=== PATIENT | male | born 1980 | race Caucasian/White ===

== ENCOUNTER 2020-01-23 19:05 | Emergency (ER) | payer SELFPAY ==
--- NOTE | 2020-01-23 19:08 | ED.GENADUL_ITS ---
Discharge Plan Disposition Patient Disposition: HOME Condition: Good Discharge Details Chief Complaint: Laceration Clinical Impression: Laceration of thumb Primary Care Provider: Charan Sandoval ED Provider: Larry Alvarez Home Meds and New Rx's Prescriptions: New cephalexin [Keflex] 500 mg capsule 500 mg PO QID 5 Days Qty: 20 RF: 0 No Action fluoxetine 20 mg tablet 20 mg PO DAILY Qty: 90 RF: 3 Discharge Instructions Instructions: Laceration (ED) Additional Instructions: Unfortunately the tibial stem is now missing. We will not be able to bring this back together with surgery at this time. This will heal gradually with time. Please follow-up with Dr. Friend at his office next week. Please call his office at the number provided. Please take antibiotic as directed. I would recommend taking 1000 mg of Tylenol every 6 hours and 600 mg of ibuprofen every 6 hours to help with the pain. Keep the bandage dry until you are seen and reassessed. Do not soak it or get it wet at all. If you notice any redness, drainage or discharge please return immediately. If you notice any worsening of your symptoms, or any new symptoms such as vomiting, diarrhea, fever, chills, shortness of breath, chest pain, numbness, weakness, or fainting , please return immediately to the emergency department for reevaluation. Please follow up with your primary care provider as soon as possible for reassessment and reevaluation. As always, it was a pleasure participating in your medical care today. Referrals: Juan Friend MD [ [facility] STAFF PHYSICIAN] - Medical Decision Making 39-year-old male who is left-hand dominant who presents with partial amputation of the distal tip of his right thumb medial aspect. He chopped off on a table saw. Exam demonstrates no evidence of bony protrusion, or exposed bone. X-ray shows no evidence of bony fracture. Unfortunately secondary to the nature of the partial lateral amputation he is not a candidate to have the skin brought back together. It is essentially shaved off and a 10 degree angle on the medial aspect of the distal tip. I did contact orthopedic surgery and spoke with Dr. Friend. He also does not feel that surgical intervention would be beneficial. He recommends close follow-up in the next week. Tetanus has been updated. We will start him on Keflex. Pain is well controlled. After the area was bandaged with nonadhesive gauze tourniquet was removed and no continued sign ificant bleeding was noted. Patient feels well. Patient will be discharged home. Discussed red flags which to return. I have extensively reviewed the treatment plan and discharge instructions with the patient. I have addressed all patient concerns at this time. The patient was made aware of what symptoms to monitor for that would warrant a return to the emergency department. Discussed the plan with the patient, they demonstrate verbal understanding and agreement with our assessment and plan at this time. HPI General Date/Time Provider Initiated Documentation: 01/23/20 19:06 . HPI Narrative: 39-year-old male who is left-hand dominant his tetanus was updated in 2005 presents today for laceration to his right thumb. The patient was working with a table saw when a piece of wood slipped, his thumb went and hit the table saw. Immediately came to the ER for further evaluation. He denies any associated numbness tingling weakness aside for where the flashes missing at the tip of his thumb. No other complaints at this time. No other modifying factors. Related Data Home Medications Medication Instructions Recorded Confirmed fluoxetine 20 mg tablet 20 mg PO DAILY #90 tab 05/01/19 cephalexin [Keflex] 500 mg PO QID 5 Days #20 cap 01/23/20 Previous Rx's Medication Instructions Recorded fluoxetine 20 mg tablet 20 mg PO DAILY #90 tab 05/01/19 cephalexin [Keflex] 500 mg PO QID 5 Days #20 cap 01/23/20 Allergies Allergy/AdvReac Type Severity Reaction Status Date / Time No Known Allergies Allergy Unverified 01/23/20 19:15 Review of Systems All systems reviewed & are unremarkable except as noted in HPI and below [facility] Surgical History (Updated 07/04/17 @ 10:37 by Cora Weber) PAROTIDECTOMY 2016 Social History Smoking/Tobacco Use Status: Never Substance use type: does not use Do you feel safe at home: Yes Do you feel safe in your relationship?: Yes Exam Narrative Exam Narrative: 1.Const: Well-nourished, Well-developed, appearing stated age 2.Eyes: PERRL, no conjunctival injection, and symmetrical lids. 3.ENT: Atraumatic external nose and ears. Moist MM. Neck: Symmetric, trachea midline, No thyromegaly. 4.CVS: +S1/S2, No murmurs or gallops. Peripheral pulses 2+ and equal in all extremities. Brisk capillary refill in all extremities. 5.RESP: Unlabored respiratory effort. Clear to auscultation bilaterally. No wheezes rales or rhonchi 6.GI: Soft, Nontender/Nondistended, No hepatosplenomegaly. No guarding or rebound. 7.MSK: Patient's right thumb demonstrates partial amputation of the medial aspect of the distal tip removing a small portion of the nail. No evidence of bony exposure. Mild active oozing. No arterial bleeding. Patient is able to flex and extend the thumb well otherwise. 8.Skin: Warm, Dry. No rashes or lesions. 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 Sensation grossly intact, no focal neurologic deficits. 10.Psych: (AAO) x3. Appropriate mood and affect
[2020-01-23 19:11] VITALS: BP 164/96; PULSE 94; RESP 17; TEMP 37; O2SAT 95
--- NOTE | 2020-01-23 19:46 | DI.RAD_ITS ---
EXAM: XR THUMB RT CLINICAL HISTORY: chop saw to tip of finger. TECHNIQUE: 2D digital imaging was performed. COMPARISON: RIGHT HAND COMPLETE from 07/10/2012 FINDINGS: BONES: No acute fracture is present. No bony destructive lesion is seen. JOINTS: No dislocation present. SOFT TISSUE: There is a soft tissue amputation at the tip of the finger. There is a 1 mm curvilinear density in the soft tissues at the tip of the finger which may represent a foreign body. IMPRESSION: 1. No acute fracture or dislocation. 2. Amputation of the soft tissues at the tip of the finger. 3. 1 mm density in the soft tissues at the tip of the finger which may represent a foreign body. DATA REPOSITORY: RADIATION DOSE DELIVERED:
--- NOTE | 2020-01-23 19:53 | DI.VRAD_ITS ---
PROCEDURE INFORMATION: Exam: XR Right Finger(s) Exam date and time: 01/23/2020 7:42 PM Age: 39 years old Clinical indication: Injury or trauma; Injury history: Thumb vs chop saw; Initial encounter; Laceration; Finger; Right; Injury date: 01/23/20 TECHNIQUE: Imaging protocol: XR Right fingers. Views: Minimum 2 views. COMPARISON: No relevant prior studies available. FINDINGS: Bones/joints: There is no evidence of fracture of the distal phalanx. Soft tissues: Soft tissue avulsion at the tip of the right thumb. There is a 1 mm hyperdense focus of debris at the tip of the finger which may represent foreign material superficially located at the soft tissue laceration/avulsion. IMPRESSION: 1. Soft tissue avulsion at the tip of the right thumb. 2. No fracture or dislocation. 3. Punctate foreign debris seen superficially in the soft tissue injury bed. Dictated and Authenticated by: Bhaskar Harris MD. Ordering:MIGDALIA Juarez MD
[2020-01-23 20:20] VITALS: BP 159/86; PULSE 94; RESP 17
== END 2020-01-23 20:20 | disposition home or self-care (01) ==
PROVIDERS: Emergency Provider Student in an Organized Health Care Education/Training Program; PCP Family Medicine
DX: S68.521A Partial traumatic transphalangeal amputation of right thumb, initial encounter (principal); W31.2XXA Contact with powered woodworking and forming machines, initial encounter
CPT/HCPCS: 90471; 99284; 73140

== ENCOUNTER 2020-09-27 11:25 | Outpatient (CLI) | payer BC, SELFPAY ==
[2020-09-28 16:50] LABS: COVID-19 RT-PCR UVMMC Result Negative (Negative)
== END 2020-09-27 11:45 ==
PROVIDERS: PCP Family Medicine; Visit Provider Family Medicine
DX: Z20.828 Contact with and (suspected) exposure to other viral communicable diseases (principal)
CPT/HCPCS: U0003

== ENCOUNTER 2021-06-14 19:41 | Emergency (ER) | payer BC, SELFPAY ==
[2021-06-14 19:47] VITALS: BP 179/95; PULSE 79; RESP 18; TEMP 36.7; O2SAT 97
--- NOTE | 2021-06-14 20:02 | ED.GENADUL_ITS ---
Discharge Plan Disposition Patient Disposition: HOME Condition: Good Discharge Details Clinical Impression: Cellulitis Primary Care Provider: Charan Sandoval ED Provider: Larry Alvarez Home Meds and New Rx's Prescriptions: New clindamycin HCl 150 mg capsule 450 mg PO TID 7 Days Qty: 63 RF: 0 Continued valacyclovir [Valtrex] 1 gram tablet 1,000 mg PO TID Qty: 21 RF: 0 amoxicillin 875 mg tablet 875 mg PO BID Qty: 14 RF: 0 cephalexin 500 mg capsule 500 mg PO QID Qty: 28 RF: 0 fluoxetine 20 mg tablet 20 mg PO DAILY Qty: 90 RF: 3 Discharge Instructions Instructions: Cellulitis (ED) Additional Instructions: At this time you still demonstrate evidence of mild to moderate cellulitis. As we discussed together please continue taking the Keflex for another 24 hours. If you notice continued worsening of the cellulitis or a lack of any improvement please transition to the clindamycin instead. Stop taking your other antibiotics at that time then. Please continue to elevate your foot. If you notice any swelling or tenderness in your calf, any viselike sensation in your ankle, or leg, please return immediately for reassessment. If you are taking the clindamycin please make sure to take it with a yogurt with live culture like activity to prevent any diarrhea. If you notice any worsening of your symptoms, or any new symptoms such as vomiting, diarrhea, fever, chills, shortness of breath, chest pain, numbness, weakness, or fainting , please return immediately to the emergency department for reevaluation. Please follow up with your primary care provider as soon as possible for reassessment and reevaluation. As always, it was a pleasure participating in your medical care today. Referrals: Charan Sandoval. [Primary Care Provider] - Medical Decision Making 40-year-old male presents today for evaluation of cellulitis. Patient was stung 10 days ago by a yellow jacket for the left lower ankle, this was asymptomatic until 36 hours ago when he developed mild redness and swelling at the area. He went to the urgent care and was started on Keflex which she has taken for the last 24 hours. Since then he has noted continued redness and swelling that is now spreading down the ankle. He denies fever or chills. No significant pain otherwise. He does admit to a very mild amount of pressure on that area but denies verbally any viselike sensation, or significant pressure. He denies any calf tenderness or knee pain. No other complaints at this time. No other modifying factors. He has been applying an [id number] topical bee sting remedy solution. Physical exam demonstrates redness spreading distally down the medial aspect of the left lower extremity, somewhat doubling the size of the initial cellulitic lesion. This area was again marked. Patient demonstrate no viselike sensation or significant pressure in the left lower extremity to suggest compartment syndrome, demonstrates a good distal vascular exam, normal sensation distally. No calf tenderness to suggest a blood clot or DVT. Symptoms at this time are concerning for worsening cellulitis. The patient has only taken 24 hours of antibiotics, so I doubt the full effect of the antibiotic therapy will be grossly evident at this stage. Recommend an additional 24 hours of continued Keflex, we will give him a prescription for clindamycin cream to take if his symptoms continue to worsen. I also discussed concerning red flags that would represent compartment syndrome, or DVT, although there is no evidence of this now, the patient is now well aware of what symptoms to look for. I have extensively reviewed the treatment plan and discharge instructions with the patient. I have addressed all patient concerns at this time. The patient was made aware of what symptoms to monitor for that would warrant a return to the emergency department. Discussed the plan with the patient, they demonstrate verbal understanding and agreement with our assessment and plan at this time. The documentation in this chart was dictated using [employer] dictation software. Please excuse any dictation errors. HPI General Date/Time Provider Initiated Documentation: 06/14/21 19:50 . HPI Narrative: 40-year-old male presents today for evaluation of cellulitis. Patient was stung 10 days ago by a yellow jacket for the left lower ankle, this was asymptomatic until 36 hours ago when he developed mild redness and swelling at the area. He went to the urgent care and was started on Keflex which she has taken for the last 24 hours. Since then he has noted continued redness and swelling that is now spreading down the ankle. He denies fever or chills. No significant pain otherwise. He does admit to a very mild amount of pressure on that area but denies verbally any viselike sensation, or significant pressure. He denies any calf tenderness or knee pain. No other complaints at this time. No other modifying factors. He has been applying an [id number] topical bee sting remedy solution. Related Data Home Medications Medication Instructions Recorded Confirmed fluoxetine 20 mg tablet 20 mg PO DAILY #90 tab 05/01/19 02/28/21 valacyclovir 1 gram tablet 1,000 mg PO TID #21 tab 08/11/20 02/28/21 amoxicillin 875 mg tablet 875 mg PO BID #14 tab 02/25/21 02/25/21 cephalexin 500 mg capsule 500 mg PO QID #28 cap 06/13/21 06/13/21 clindamycin HCl 450 mg PO TID 7 Days #63 cap 06/14/21 Previous Rx's Medication Instructions Recorded fluoxetine 20 mg tablet 20 mg PO DAILY #90 tab 05/01/19 valacyclovir 1 gram tablet 1,000 mg PO TID #21 tab 08/11/20 amoxicillin 875 mg tablet 875 mg PO BID #14 tab 02/25/21 cephalexin 500 mg capsule 500 mg PO QID #28 cap 06/13/21 clindamycin HCl 450 mg PO TID 7 Days #63 cap 06/14/21 Allergies Allergy/AdvReac Type Severity Reaction Status Date / Time valacyclovir [From Valtrex] Allergy Severe headache - Verified 06/13/21 17:56 nauseau General Stated Complaint: Cellulitis HARRY: 4 Review of Systems All systems reviewed & are unremarkable except as noted in HPI and below PFSH Medical History Left eye pain Zoster Surgical History PAROTIDECTOMY 2016 Social History Smoking/Tobacco Use Status: Never Smoking risk assessment performed?: Yes Alcohol Intake: never Substance use type: does not use Do you feel safe at home: Yes Do you feel safe in your relationship?: Yes Exam Narrative Exam Narrative: 1.Const: Well-nourished, Well-developed, appearing stated age 2.Eyes: PERRL, no conjunctival injection, and symmetrical lids. 3.ENT: Atraumatic external nose and ears. Moist MM. Neck: Symmetric, trachea midline, No thyromegaly. 4.CVS: +S1/S2, No murmurs or gallops. Peripheral pulses 2+ and equal in all extremities. Brisk capillary refill in all extremities. 5.RESP: Unlabored respiratory effort. Clear to auscultation bilaterally. No wheezes rales or rhonchi 6.GI: Soft, Nontender/Nondistended, No hepatosplenomegaly. No guarding or rebound. 7.MSK: Normocephalic/Atraumatic, Extremities w/o deformity or ttp No cyanosis or clubbing, Normal movement of all extremities. Patient's left lower extremity demonstrates mild area of redness at the site of the medial left lower calf just above the ankle, the original cellulitic area was marked with marker, and there is evidence of spread of the cellulitis down the medial aspect of the ankle towards the medial malleolus. No bony tenderness, no tenderness with movement. Dorsalis pedis and posterior tibial pulse +2 bilaterally, good capillary refill. No calf tenderness, no calf swelling, no posterior knee tenderness. No crepitus. 8.Skin: Warm, Dry. No rashes or lesions. 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 Sensation grossly intact, no focal neurologic deficits. 10.Psych: (AAO) x3. Appropriate mood and affect Course Vital Signs Vital signs: Vital Signs Temperature 36.7 C 06/14/21 19:47 Pulse 79 06/14/21 19:47 Respiratory Rate 18 06/14/21 19:47 Blood Pressure 179/95 H 06/14/21 19:47 Pulse Oximetry 97 06/14/21 19:47 Temperature 36.7 C 06/14/21 19:47 Temperature Source Temporal Artery Scan 06/14/21 19:47 Pulse 79 06/14/21 19:47 Respiratory Rate 18 06/14/21 19:47 Respiratory Effort Non-Labored 06/14/21 19:49 Blood Pressure 179/95 H 06/14/21 19:47 Blood Pressure Position Sitting 06/14/21 19:47 Pulse Oximetry 97 06/14/21 19:47 Oxygen Delivery Method Room Air 06/14/21 19:47 Oxygen Flow Rate 0 06/14/21 19:47 Pain Level 0 06/14/21 19:47
== END 2021-06-14 20:09 | disposition home or self-care (01) ==
LOC: ER 20:11
PROVIDERS: Emergency Provider Student in an Organized Health Care Education/Training Program; PCP Family Medicine
DX: L03.116 Cellulitis of left lower limb (principal)
CPT/HCPCS: 99283

== ENCOUNTER 2022-08-23 13:44 | Outpatient (REF) | payer BC, SELFPAY ==
[2022-08-23 15:56] LABS: Sperm(Post-Vasectomy) Present
== END 2022-08-23 13:45 | disposition home or self-care (01) ==
LOC: LBN 13:44
PROVIDERS: PCP Family Medicine; Visit Provider Family Medicine
DX: Z30.8 Encounter for other contraceptive management (principal); Z98.52 Vasectomy status
CPT/HCPCS: 89321

== ENCOUNTER 2023-09-13 11:17 | Day surgery (SDC) | payer BC, SELFPAY ==
[2023-09-12 13:15] VITALS: BP 134/80; PULSE 81; RESP 16; TEMP 36.3; O2SAT 94
--- NOTE | 2023-09-13 10:53 | W.PM.HP.N ---
Date of service: 09/13/23 Time of Service: 12:12 Assessment and Plan Assessment and plan (1) Encounter for vasectomy: Status: Acute Assessment and plan: For vasectomy History of Present Illness History of Present Illness Chief Complaint: Vasectomy Narrative: This is a 42-year-old gentleman who had a vasectomy in the past. He then had a vasectomy reversal. Those procedures were done over 5 years ago. He comes in now for repeat vasectomy. He and his partner are not interested in additional pregnancies. Review of Systems Narrative: No fevers or chills No vision change or dysphasia Hypothyroidism. No diabetes Sleep apnea and patient describes being told he is a difficult intubation (during parotidectomy). 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: Yes Meds Allergies and Home Medications Allergies Allergy/AdvReac Type Severity Reaction Status Date / Time valacyclovir [From Valtrex] AdvReac Severe headache - Verified 09/13/23 11:35 nausea Home Medications Medication Instructions Recorded Confirmed Type Unknown [No Known Home Meds] 07/30/23 09/13/23 History Exam Const General: cooperative Neck Neck: supple Resp Effort & Inspection: normal respiratory effort Auscultation: clear to auscultation bilaterally Cardio Rate: regular rate Rhythm: regular rhythm GI Palpation: soft and no masses Other: both vas deferens palpable but cord thickened bilaterally Neuro General: patient alert, patient awake and patient oriented x3 Time Spent Time spent with Patient: <40 minutes Time was spent: other
[2023-09-13 11:36] VITALS: BP 156/86; PULSE 90; RESP 17; TEMP 36.1; O2SAT 95
--- NOTE | 2023-09-13 12:10 | W.ANESPRE ---
General Info Date of Service Date Performed: 09/13/23 Height: 5 ft 11 in Weight: 136.1 kg Body Mass Index (BMI): 41.8 Surgical Procedure: Operation Date: 09/13/23 13:10 Proposed Procedure Side Surgeon p Vasectomy Brett Hamilton MD Actual Procedure Side Surgeon p Vasectomy Not Applicable Brett Hamilton MD Pre-Op Diagnosis Post-Op Diagnosis DESIRE FOR VASECTOMY. DESIRE FOR VASECTOMY. Meds Allergies and Home Medications Allergies Allergy/AdvReac Type Severity Reaction Status Date / Time valacyclovir [From Valtrex] AdvReac Severe headache - Verified 09/13/23 11:35 nausea Home Medication Medication Instructions Recorded Unknown [No Known Home Meds] 07/30/23 Current Visit Medications: Current Medications Generic Name Dose Route Start Last Admin Trade Name Freq PRN Reason Stop Dose Admin Ringer's Solution 1,000 mls @ 80 mls/hr 09/13/23 06:00 IV 10/12/23 23:59 INFUSION ANALIA IV Miscellaneous Supplies 1 each 09/13/23 06:00 Iv Access IV 10/12/23 23:59 DIRECTED ANALIA Sodium Chloride 0 ml 09/13/23 06:00 Normal Saline Flush 10 Ml Syr IV 10/12/23 23:59 PRN PRN Sodium Chloride 0 ml 09/13/23 06:00 Normal Saline 10 Ml Vial IJ 10/12/23 23:59 DIRECTED PRN Sterile Water 0 ml 09/13/23 06:00 Water,Injection,Sterile 10 Ml Vial IJ 10/12/23 23:59 DIRECTED PRN PFSH Active Problems Active Problems: Problem Status Onset Code Encounter for vasectomy Z30.2 H/O vasectomy Z98.52 Cellulitis L03.90 Left eye pain H57.12 Zoster B02.9 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 01/23/20 S68.521A Muscle strain of right gluteal region S76.011A Mood disorder F39 Hypothyroidism 08/01/13 E03.9 Sleep apnea 01/21/15 G47.30 SOREN (obstructive sleep apnea) G47.33 Medical History Medical History Comments:: Pt reports having breathing issues intraop; SOREN CPAP compliant at home Surgical History Surgical History History of hip surgery right, 2x; labral tear and lengthening it IT band PAROTIDECTOMY 2016 Tobacco Smoking/Tobacco Use Status: Never Alcohol Alcohol Intake: never Substance Use Substance use: Never Substance use type: does not use Vital Signs and Lab Results Vital Signs Most Recent Vital Signs in EMR: Most Recent Vital Signs Temp Pulse Resp BP Pulse Ox 36.1 C L 90 17 156/86 H 95 09/13/23 11:36 09/13/23 11:36 09/13/23 11:36 09/13/23 11:36 09/13/23 11:36 Lab Results Blood Type / Crossmatch: No Data to Display Complete Blood Count: No Data to Display Complete Metabolic Panel: No Data to Display Liver Function Panel: No Data to Display Coagulation Panel: No Data to Display Cardiac Panel: No Data to Display Arterial Blood Gas: No Data to Display Venous Blood Gas: No Data to Display Pancreas Panel: No Data to Display Thyroid Panel: No Data to Display Infectious Disease: No Data to Display Blood Cultures: No Data to Display Toxicology Panel: No Data to Display Anesthesia Assessment and Plan Anesthesia History Personal History: Other Family History: No Family History of Anesthesia Complications Exercise Tolerance Exercise Tolerance: Metabolic Equivalents>4 Pertinent Negatives Pertinent Negatives: No Symptoms of GERD, No Major Cardiovascular Symptoms or Complaints and No Major Pulmonary Symptoms or Complaints Cardiac & Pulmonary Exam Cardiac Exam: Normal S1/S2 Heart Sounds Pulmonary Exam: Clear Bilateral Breath Sounds Implantable Cardiac Device Does patient have a Pacemaker or an ICD?: No Airway Exam Known Difficult Airway: No Mallampati Class: 2 Mouth Opening: Normal (> 3cm) Thyromental Distance: Greater than 3 cm Facial Hair: Full Jenkins Neck Range of Motion: Full ROM Neck Circumference: Thick Teeth Condition: Normal Dentition ASA Classification ASA Score: ASA 3 Emergency Case?: No NPO Status NPO Status: NPO Clears >2 hours, Solids >8 hours Anesthesia Plan Resuscitation Status: Full Code Anesthesia Technique: General Anesthesia Airway Planned: Natural Airway Monitors Used: Standard Monitors
[2023-09-13 12:11] VITALS: BMI 41.8
[2023-09-13] MEDS: Lactated Ringers 1,000 ML 80 ML IV (12:40)
[2023-09-13] MEDS: Bupivacaine 0.5% Pres-Free 30 ML VIAL (12:55)
--- NOTE | 2023-09-13 13:09 | W.PM.DSUDISC ---
Date of service: 09/13/23 Time of Service: 13:10 Discharge Plan Disposition Patient Disposition: Home Condition: Stable Discharge Details Reason For Visit: vasectomy Attending Provider: Brett Hamilton Primary Care Provider: Charan Sandoval Home Meds and New Rx's Prescriptions: No Action No Known Home Meds Discharge Instructions Additional Instructions: now lifting over 10 pounds for 3 to 4 days no ejaculation for 7 days wear tight shorts and use ice packs to the scrotum off and on for 48 hours use tylenol and ibuprofen for discomfort bring semen sample to office for evaluation in 12 weeks Activity:: see additional instructions Remove Dressings/Wound Care:: 24 hours Shower/Bathe:: 24 hours Diet:: As Tolerated Discharge Orders Discharge Orders: Discharge Order (Routine); Ordered 09/13/23 Ordered By: Brett Hamilton DS: Diagnosis Discharge Diagnosis (1) Encounter for vasectomy: Status: Acute
--- NOTE | 2023-09-13 13:15 | W.PM.OP ---
Date of service: 09/13/23 Time of Service: 13:15 Operative Note Operative Note DATE OF PROCEDURE: 09/13/23 PRE-OP DIAGNOSIS: Elective sterilization POST-OP DIAGNOSIS: same PROCEDURE: vasectomy SURGEON: Brett Hamilton ANESTHESIA TYPE: Local By Surgeon and General:No Airway Refer to Anesthesia Record ESTIMATED BLOOD LOSS: 5 PATHOLOGY: none sent COMPLICATIONS: None Implants: none Indications: This is a 42-year-old gentleman who had undergone a vasectomy over 10 years ago. He then had a vasectomy reversal over 5 years ago. He and his partner are not interested in additional pregnancies at this time. He presents for repeat pass ectomy Procedure Description: The patient was brought to the operating room on 09/13/2023. He was placed in the supine position. After successful induction of general anesthesia without intubation, his genitalia was prepped and draped. I began on the patient's left side and isolated the vas deferens up against the scrotal skin. The skin was infiltrated with 1% lidocaine. The skin was then opened using a scalpel free technique. The vas deferens was grasped and a ring forceps. The vasa was dissected free from its surrounding tissue using sharp and blunt dissection. A 2 cm section of vas deferens was then excised. Each cut end of the vas was cauterized using a Bovie. The more proximal end of the vasa was buried back beneath the adventitia using a simple interrupted 4-0 chromic suture. The same procedure was then performed on the patient's right side. Each of the skin openings was inspected for hemostasis. Once hemostasis had been obtained, the skin was closed with Dermabond. A fluff dressing and a scrotal support were then applied. The patient tolerated this procedure well with no complications.
[2023-09-13 14:38] VITALS: BP 129/77; PULSE 74; RESP 16; TEMP 36.3; O2SAT 96
--- NOTE | 2023-09-13 14:46 | W.ANESPOSTOP ---
Postoperative Evaluation Date, Time and Location Date Performed: 09/13/23 Time Performed: 14:40 Patient Location: Day Surgery Unit Vital Signs Most Recent Imported Vital Signs: Most Recent Vital Signs Temp Pulse Resp BP Pulse Ox 36.3 C L 74 16 129/77 96 09/13/23 14:38 09/13/23 14:38 09/13/23 14:38 09/13/23 14:38 09/13/23 14:38 Pain Score Most Recent Pain Score: Most Recent Pain Score Pain Level 1 09/13/23 14:38 Assessment Mental Status: Awake (Alert & Oriented to Patient Baseline) Airway and Respiratory Function: Patent airway with normal (patient baseline) respiratory exam Cardiovascular Function: Hemodynamically Stable Hydration Status: Adequately Hydrated Nausea & Vomiting: No Nausea or Vomiting Pain: Pt. Denies Any Pain Peripheral Nerve Block: Patient did not receive a nerve block
== END 2023-09-13 14:35 | disposition home or self-care (01) ==
PROVIDERS: PCP Family Medicine; Visit Provider Urology
PROC: (CPT 55250; principal; 2023-09-13 13:00)
DX: Z30.2 Encounter for sterilization (principal)
CPT/HCPCS: 55250; J1100; J1885; J2001; J2250; J2405

== ENCOUNTER 2023-10-19 00:57 | Outpatient (CLI) | payer BC, SELFPAY ==
[2023-10-19 12:17] LABS: HCT 45.5 % (40.0-50.0); HGB 15.8 g/dL (13.5-17.5); MCHC 34.7 % (32.0-36.0); MCV 89 fL (80-95); MPV 11.7 fL (8.0-11.0); Platelet Count 300 10^3/uL (130-400); RDW 12.6 % (11.8-14.1); RDW-SD 40.5 fL; WBC 8.77 10^3/uL (4.4-10.8)
[2023-10-19 12:37] LABS: Hemoglobin A1C 5.4 % (<5.7)
[2023-10-19 12:39] LABS: ALT 74 U/L (16-63); AST 29 U/L (15-37); Albumin 3.9 g/dL (3.4-5.0); Alkaline Phosphatase 73 U/L (46-116); Anion Gap 10.5 mmol/L (3-11); BUN 12 mg/dL (7-18); Bilirubin, Total 0.6 mg/dL (0.2-1.0); CO2 27.5 mmol/L (21.0-32.0); CREATININE 1.1 mg/dL (0.70-1.30); Calcium 9.4 mg/dL (8.5-10.1); Calculated LDL 164 mg/dL (<100); Chloride 102 mmol/L (98-107); Cholesterol 264 mg/dL (<200); Estimated GFR 87.03 (mL/min/1.73m2); Glucose 113 mg/dL (74-106); HDL Cholesterol 44 mg/dL (40-60); Potassium 4.3 mmol/L (3.5-5.1); Sodium 140 mmol/L (136-145); TSH (W/Ref FT4) 3.05 uIU/mL (0.36-3.74); Total Protein 8.2 g/dL (6.4-8.2); Triglyceride 280 mg/dL (<150)
== END 2023-10-19 00:58 | disposition home or self-care (01) ==
LOC: LOS 00:58
PROVIDERS: PCP Nurse Practitioner Family; Visit Provider Nurse Practitioner Family
DX: E03.9 Hypothyroidism, unspecified (principal); F39 Unspecified mood [affective] disorder
CPT/HCPCS: 36415; 80053; 80061; 85027; 83036; 84443

== ENCOUNTER 2024-09-12 11:10 | Outpatient (CLI) | payer BC, SELFPAY ==
[2024-09-12 10:23] LABS: Abs Immature Grans 0.03 10^3/uL (0.0-0.06); Absolute Basophil Count 0.07 10^3/uL (0.0-0.2); Absolute Eosinophil Count 0.19 10^3/uL (0.0-0.7); Absolute Lymphocyte Count 2.93 10^3/uL (1.2-3.4); Absolute Neutrophil Count 3.63 10^3/uL (1.2-6.7); Basophils % 0.9 %; Eosinophils % 2.6 %; HGB 15.9 g/dL (13.5-17.5); Immature Grans % 0.4 %; Lymphocytes % 39.3 %; MCH 30.6 pg (27.0-33.0); MCHC 34.6 % (32.0-36.0); MCV 89 fL (80-95); MPV 10.4 fL (8.0-11.0); Monocytes % 8.1 %; Neutrophils % 48.7 %; Platelet Count 274 10^3/uL (130-400); RDW 12.5 % (11.8-14.1); RDW-SD 40.6 fL; WBC 7.45 10^3/uL (4.4-10.8)
[2024-09-12 10:47] LABS: ALT 60 U/L (16-63); AST 28 U/L (15-37); Albumin 3.9 g/dL (3.4-5.0); Alkaline Phosphatase 89 U/L (46-116); Anion Gap 11.2 mmol/L (3-11); BUN 11 mg/dL (7-18); Bilirubin, Direct 0.1 mg/dL (0.0-0.2); Bilirubin, Total 0.32 mg/dL (0.2-1.0); CO2 23.8 mmol/L (21.0-32.0); CREATININE 1.1 mg/dL (0.70-1.30); Chloride 106 mmol/L (98-107); Estimated GFR 86.49 (mL/min/1.73m2); GGT 40 U/L (15-85); Glucose 108 mg/dL (74-106); Potassium 4.2 mmol/L (3.5-5.1); Sodium 141 mmol/L (136-145); TSH 2.32 uIU/mL (0.36-3.74); Total Protein 7.8 g/dL (6.4-8.2)
[2024-09-15 13:51] LABS: IgA 281 mg/dL (85-499); Interpretation (See Note); Tissue Transglutaminase IgA <4.0 CU (<20.0)
== END 2024-09-12 11:11 | disposition home or self-care (01) ==
LOC: LBO 11:11
PROVIDERS: PCP Nurse Practitioner Family; Visit Provider Internal Medicine Gastroenterology
DX: R19.7 Diarrhea, unspecified (principal)
CPT/HCPCS: 36415; 80048; 80076; 82784; 83516; 82977; 84443; 85025

== ENCOUNTER 2024-09-15 18:41 | Outpatient (REF) | payer BC, SELFPAY ==
--- OUTSIDE RECORDS SUMMARY | 2024-09-15 18:42 | XMS_ITS | Encounter Summary ---
Author Organization [facility] [place] [address] Care Team Providers Care Sales Operations Associate Name Role Phone Charan Sandoval MD Primary Care Provider [phone] Reason for Visit * Auth/Cert Specialty Diagnoses / Procedures Referred By Contac t Referred To Contact Diagnoses right parotid neoplasm Procedures PRO EXC PAROTD, LAT LOBE, DISSECT 5TH NERV PRG SOMATOSENSORY TEST, ANY/ALL PER. NERVES, TRUNK OR HEAD EXC.PAROTID TUMOR OR GLAND, LATERAL LOBE Referral ID Status Reason Start Date Expiration Date Visits Re quested Visits Authorized [id number] 1 Encounter Details Date Type Department Care Team (Late st Contact Info) Description 03/17/2016 1:39 PM EDT - 03/17/2016 4:47 PM EDT Surgery [place] [address] Festus Serrano MD [facility] [place] [address] EXC.PAROTID TUMOR OR GLAND, LATERAL LOBE, W DISSECTION & PRESERVATION FACIAL NERVE (WRVU 17.16) Social History Tobacco Use Types Packs/Day Years Used Date Smoking Tobacco: Never Smokeless Tobacco: Never Alcohol Use Standard Drinks/Week Comments Yes 1 (1 standard drink = 0.6 oz pur e alcohol) 1-2 x week or less Sex and Gender Information Value Date Recorded Sex Assigned at Not on file Gender Identity Not on file Sexual Orientation Not on file documented as of this encounter Last Filed Vital Signs Vital Sign Reading Time Taken Comments Blood Pressure 124/72 03/17/2016 11:15 PM EDT Pulse 75 03/17/2016 11:15 PM EDT Temperature 36.3 ??C (97.3 ??F) 03/17/2016 9:08 PM ED T Respiratory Rate 9 03/17/2016 9:30 PM EDT Oxygen Saturation 95% 03/17/2016 11:15 PM EDT Inhaled Oxygen Concentration - - Weight 120.7 kg (266 lb) 03/17/2016 2:29 PM EDT Height 180.3 cm (5' 11) 03/17/2016 2:29 PM EDT Body Mass Index 37.1 03/17/2016 2:29 PM EDT documented in this encounter Discharge Instructions * Patient Instructions* Lalo Padron MD - 03/17/2016 3:39 PM EDT Instructions for Patient at Discharge: What to expect: You will have soreness which will improve over the next several days. The area around the incision may be numb. This should recover over the next few months. Medications: Pain Control - use acetaminophen (Tylenol) and/or ibuprofen (Motrin, Advil) as needed. For more severe pain, take the prescribed pain medication. If the prescribed pain medication contains acetaminophen, do not take additional acetaminophen (Tylenol) as this can cause liver damage. Do not exceed 4g acetaminophen per day. As your pain improves, wean yourself off of the prescribed painmedication. Do not drive or operate machinery while taking the prescribed pain medication. Incision Care: Your incision was closed with sutures/rosales. These will need to be removed in about 7-14 days, which will usually occur at your follow up appointment. Use diluted peroxide to clean the incision andapply antibiotic ointment twice daily. Keep the incision dry for the next two days. After that you may get the area wet and pat dry (it is okay to shower). Do not submerge the incision for at least 2 weeks. Activity: A good rule of thumb is if it hurts don't do it. Keep your head elevated when lying flat. No heavy lifting or straining for the next week. No smoking, this is important for wound healing. Diet: Resume baseline diet You should call your doctor if you develop: -Facial weakness -Increasing pain and redness -Increasing drainage from the wound -Fever > 38.5Celsius or 101 Fahrenheit -Bleeding Contact: -You can reach the ENT clinic at [phone] for appointment questions. -The ENT triage nurse is available at [phone] -For urgent issues during evenings and weekends the ENT resident cotton grower can be reached through [facility] air drill operator at [phone] Follow Up: You will need to follow up with ENT in 1 week. This appointment has been requested. You will be notified once it is scheduled, if you do not already see it below. If you do not hear from us in a timely manner, please call [phone] to receive your date and time. Currently Scheduled Appointments and VNA instructions: Future Appointments and Orders Future Appointments Provider Department Dept Phone 03/23/2016 2:30 PM Nam Hamilton PA Otolaryngology [phone] documented in this encounter Medications at Time of Discharge Medication Sig Dispensed Refills Start Date End Date fluticasone (FLONASE) 50 mcg/actuation [place], Suspension 1 spray by Each Nare route as needed. 10/13/2015 oxyCODONE (ROXICODONE) 5 mg Tablet Take 1-2 tablets by mouth every 4 hours as needed for Pain. No driving, no alcohol 20 tablet 03/17/2016 03/23/2016 scopolamine (TRANSDERM-SCOP) 1.5 mg (1 mg over 3 days) patch [address] 1 patch onto the skin every 3 days. 3 patch 03/17/2016 06/28/2017 documented as of this encounter Progress Notes * Servando Carias RN - 03/17/2016 11:48 PM EDT Pt discharged home Vs Stable Pt with no voiced questions concerns Discharge instructions given * Johnathon Blackburn RN - 03/17/2016 9:26 PM EDT 2106: Pt admitted to PACU after report from anesthesia provider; monitors on; alarms settings confirmed and appropriate for pt; admission assessment ongoing; see PACU phase I flowsheet. 2126: Pt given urinal at his request. 2208: Handoff report given to Servando RN documented in this encounter H&P Notes * Lalo Padron MD - 03/17/2016 3:28 PM EDT OTOLARYNGOLOGY - HEAD & NECK SURGERY PRE OP 24 HOUR UPDATE Name: Tommy Xie Age/Sex: 35 y.o. male Attending: Jimbo Baron MD Interval History Tommy Xie's condition unchanged since H&P originally performed. Denies any new ED visits, hospitalizations, trauma, or new events. Has been overall doing well. Vitals Last value 24hr Range Temperature: 36.8 ??C (98.2 ??F) Temp: [36.8 ??C (98.2 ??F)] Heart Rate: 87 Heart Rate: [87] Blood Pressure: 135/81 BP: (135)/(81) Respiratory Rate: 18 Resp: [18] SpO2: 98 % SpO2: [98 %] Physical Exam General: NAD, alert. Heart: RRR Lungs: CTAB Neuro: Normal sensation and ROM in hands and feet bilaterally. ASSESSMENT & PLAN Tommy Xie is a 35 y.o. male who is here today due to right parotid neoplasm. After extensive discussion of the risks, benefits, and alteratives of surgical intervention, the patient consented to proceed with surgery. 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 Findings: right parotid mass excised. Capsule intact Anesthesia: General Estimated Blood Loss: * No values recorded between 03/17/2016 4:51 PM and 03/17/2016 8:30 PM * Specimens removed during surgery: parotid mass Drains: none Surgical Closure: Primary Closure - closure of ALL tissue levels during the original surgery regardless of wires, wickes, drains, or other devices extruding through the incision Disposition: awakened from anesthesia, extubated and taken to the recovery room in a stable condition, having suffered no apparent untoward event. Condition: doing well without problems (Please see the Surgical Encounter Summary for any Implant and Specimen details pertinent to this patient.) HPI/Surgical Indications: 35 year old male with right parotid mass. Painful. Here for parotidectomy. Procedure Description: The patient was taken to the operating room, placed in the supine position, and general endotracheal anesthesia was achieved without complication. He was turned 180 degrees from anesthesia, prepped and draped in the usual fashion for parotidectomy. The planned incision was marked and lidocaine with epinephrine was used for local anesthetic and vasoconstriction. Facial nerve monitoring leads were inserted in the orbicularis kunal and oculi musclesand continuous monitoring was performed throughout the case. A modified [place] incision was made in the right parotid. An anterior flap was raised superficial tothe SMAS superiorly transitioning to a subplatysmal flap. SupraSMAS elevation was performed exposing the entire parotid gland. The greater auricular nerve was identified and was preserved. The anterior border of the SCM was identified. The tragal cartilage was identified and the dissection carried d own to the tragal pointer. The facial nerve trunk was identified inferior and deep to the tragal pointer near the stylomastoidforamen and followed distally. Using the Macabe, Micro cutting forcepts, and the harmonic scalpel the pes and upper and lower branches of the facial nerve were identified and protected. The mass was identified in the mid portion of the superficial lobe of the parotid. The branches of the facial nerve were carefully identified and skeletonized. A small amount of devascularized parotid tissue was removed and a surrounding healthy appearing margin around the mass. The facial nerve was intact and stimulating appropriately after the dissection was complete and at the conclusion of the case. The wound was irrigated. Hemostasis was obtained with bipolar cautery. Gelfoam and thrombin were placed over the facial nerve. The SMAS was reapproximated using vicryl interrupted sutures. A stitch was placed though the tragalcartilage to stent the ear canal open and the deep tissue was approximated with vicryl. A running 5.0 fast absorbing gut suture was used to approximate the skin edges. The skin was covered with bacitracin. A facelift dressing was applied. The patient was then returned to anesthesia, allowed to awaken, and taken out of the operating roomin good condition. The patient tolerated the procedure well without complication. Attestation: Case Date: 03/17/2016 I was present and I participated during the entire procedure (does not need to include opening and closing). 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 SCAN 03/20/2016 12:00 AM EDT ECG SCAN 03/20/2016 12:00 AM EDT SURGICAL PATHOLOGY REPORT Routine 03/17/2016 8:08 PM EDT SPECIMEN TO PATHOLOGY Routine 03/17/2016 8:04 PM EDT FACIAL NERVE MONITORING, SETUP PERIPHERAL (WRVU 0.54) 03/17/2016 4:05 PM EDT Parotid neoplasm EXC.PAROTID TUMOR OR GLAND, LATERAL LOBE, W DISSECTION & PRESERVATION FACIAL NERVE (WRVU 17.16) 03/17/2016 4:05 PM EDT Parotid neoplasm FACIAL NERVE MONITORING, SETUP Routine 03/17/2016 2:14 PM EDT Parotid neoplasm documented in this encounter Results * SCAN DOC: GERICARE AIDE TEACHER (03/20/2016 12:00 AM EDT) Anatomical Region Laterality Modality Other Scanning Provider MEDIA MGR SCAN EXT O RDR/RSLT * SCAN DOC: ECG (03/20/2016 12:00 AM EDT) Scanning Provider MEDIA MGR SCAN EXT O RDR/RSLT * Surgical Pathology Report (03/17/2016 8:08 PM EDT) Final Diagnosis [id number] ? Location: The signing pathologist has (i) examined the relevant preparation(s) for the specimen(s) and (ii) rendered or confirmed the diagnosis(es). . ?Surgical Pathology DIAGNOSIS Right parotid mass 1. Pleomorphic adenoma, polylobulated, 1.3 cm, at inked margin of specimen 2. Atrophic parotid gland 3. Two (0/2) lymph nodes ?? negative for malignancy 03/22/16 VAM 03/22/16 Verified by: ? Maxwell Frank MD ?Pathologist ?(Electronic Signature) The attending pathologist whose signature appears on this report has reviewed all diagnostic slides and has edited the gross and/or microscopic portion of the report in rendering the final pathologic diagnosis. CLINICAL INFORMATION Specimen Submitted: A - Right parotid mass Clinical History: Right parotid neoplasm Clinical Diagnosis: Same SPECIMEN PROCESSING A - ??Labeled/Fixat alejandrina: Right parotid mass, fresh. Quantity/Size: Two, 2.7 x 2.5 x 1.8 cm, 1.9 x 1.7 x 1.4 cm. Tissue Description: External surface is rubbery, roughened, pink-red to purple. Sectioning reveals yellow to red-pink, lobulated tissue with a well-circumscri bed, 1.3 x 0.9 x 0.7 cm hard, pink to bob nodule. Also noted is a 0.5 x 0.4 x 0.4 cm soft, red-brown, possible lesion. Sections/Proces sing: Specimen is inked black. (1-4) hard, pink to bob nodule; (5-6) soft, red-brown, possible lesion. (R6) ??SCB/SNS 03/22/2016 9:34 AM EDT [facility] PAROTID GLAND STRUCTURE / Unknown 03/17/2016 8:08 PM EDT 03/17/2016 8:08 PM EDT Festus Serrano MD PATHOLOGY/CYTOLOGY ORDERABLES Performing Organization Address City/[facility]/ZIP Co de Phone Number [facility] [place] [address] * Specimen to Pathology (surgical or derm) (03/17/2016 8:04 PM EDT) AP Specimen 03/17/2016 8:04 PM EDT 03/17/2016 8:04 PM EDT Narrative [facility] - 03/17/2016 8:04 PM EDT Specimen requisition ordered. ??Separate Pathology report to follow Festus Serrano MD PATHOLOGY/CYTOLOGY ORDERABLES Performing Organization Address City/[facility]/ZIP Co de Phone Number [facility] [place] [address] documented in this encounter Visit Diagnoses Diagnosis Parotid neoplasm Neoplasm of unspecified nature of digestive system Parotid neoplasm Neoplasm of unspecified nature of digestive system documented in this encounter Administered Medications Inactive Administered Medications - up to 3 most recent administrations Medication Order MAR Action Action Date Dose Rate Site bacitracin ointment ONCE PRN, Starting on 03/17/16 at 2037, Until 03/18/16 at 0149, Intra-Operative (Intra-Procedure) Given 03/17/2016 8:37 PM EDT 1 Tube 19- Surgical Site gelatin adsorbable (GELFOAM) sponge ONCE PRN, Starting on Sun03/17/16 at 1711, Until 03/18/16 at 0149, Intra-Operative (Intra-Procedure) Given 03/17/2016 5:11 PM EDT 2 each lidocaine-EPINEPHrine 1 %-1:200,000 injection ONCE PRN, Starting on Sun03/17/16 at 1711, Until 03/18/16 at 0149, Intra-Operative (Intra-Procedure), Routine Given 03/17/2016 5:11 PM EDT 7 mLs oxyCODONE-acetaminophe n (PERCOCET) 5-325 mg per tablet 1-2 tablet 1-2 tablet, Oral, EVERY 4 HOURS PRN, Pain, Starting on Sun03/17/16 at 2056, Until Sun03/17/16 at 2345, Maximum dose of acetaminophen is 4000 mg from all sources in 24 hours., PACU Recovery Given 03/17/2016 10:25 PM EDT 2 tablets scopolamine (TRANSDERM-SCOP) 1.5 mg (1 mg over 3 days) patch 1 patch 1 patch, Transdermal, EVERY 72 HOURS, First dose on Sun03/17/16 at 2200, Until Discontinued, Routine Patch Applied 03/17/2016 10:24 PM EDT 1 patch 02- Ear Behind (Right) scopolamine (TRANSDERM-SCOP) 1.5 mg patch Patch Removal Transdermal, EVERY 72 HOURS, First dose on Sun03/20/16 at 2200, Until Discontinued, Remove scopolamine 1.5 mg patch scopolamine (TRANSDERM-SCOP) 1.5 mg patch Patch Verification Transdermal, 2 TIMES DAILY, First dose on Sun03/18/16 at 0900, Until Discontinued, Verify scopolamine 1.5 mg patch. thrombin (Bovine) (THROMBINAR) kit ONCE PRN, Starting on Sun03/17/16 at 1711, Until 03/18/16 at 0149, Intra-Operative (Intra-Procedure) Given 03/17/2016 5:11 PM EDT 200,000 Units documented in this encounter Active and Recently Administered Medications Times are shown in EDT. Scheduled Medication Order 03/15/2016 03/16/2016 03/17/2016 scopolamine (TRANSDERM-SCOP) 1.5 mg (1 mg over 3 days) patch 1 patch(Linked Group 1) 1 patch, Transdermal, EVERY 72 HOURS, First dose on Sun03/17/16 at 2200, Until Discontinued, Routine 2224 (Patch Applied - Provider: Servando Carias RN) scopolamine (TRANSDERM-SCOP) 1.5 mg patch Patch Removal(Linked Group 1) Transdermal, EVERY 72 HOURS, First dose on 03/20/16 at 2200, Until Discontinued, Remove scopolamine 1.5 mg patch scopolamine (TRANSDERM-SCOP) 1.5 mg patch Patch Verification(Linked Group 1) Transdermal, 2 TIMES DAILY, First dose on 03/18/16 at 0900, Until Discontinued, Verify scopolamine 1.5 mg patch. Continuous Medication Order 03/15/2016 03/16/2016 03/17/2016 lactated ringers infusion 1,000 mL 1,000 mL, at 100 mL/hr, Intravenous, CONTINUOUS, Starting on Sun03/17/16 at 1445, Until Sun03/17/16 at 2345, Day of Surgery (Day of Procedure) 1603 (New Bag - Prov ider: Hawk Pitts MD)1651 (New Bag - Provider: Hawk Pitts MD)1750 (Anesthesia Volume Adjustment - Provider: Rosamaria Pineda CRNA)1853 (Anesthesia Volume Adjustment - Provider: Rosamaria Pineda CRNA)2008 (Anesthesia Volume Adjustment - Provider: Rosamaria Pineda CRNA)2049 (New Bag - Provider: Rosamaria Pineda CRNA)2108 (Stopped - Provider: Rosamaria Pineda CRNA) PRN Medication Order 03/15/2016 03/16/2016 03/17/2016 bacitracin ointment (CANCELED) ONCE PRN, Starting on Sun03/17/16 at 2037, Until 03/18/16 at 0149, Intra-Operative (Intra-Procedure) 2037 (Given - Provid er: Lalo Padron MD) gelatin adsorbable (GELFOAM) sponge (CANCELED) ONCE PRN, Starting on Sun03/17/16 at 1711, Until 03/18/16 at 0149, Intra-Operative (Intra-Procedure) 1711 (Given - Provid er: Festus Serrano MD) lidocaine (XYLOCAINE) 10 mg/mL (1 %) injection 3 mg 3 mg (0.3 mL), Subcutaneous, ONCE PRN, 1 dose, Starting on Sun03/17/16 at 1428, Until Sun03/17/16 at 2345, for discomfort with PIV insertion, Day of Surgery (Day of Procedure), Routine lidocaine-EPINEPHrine 1 %-1:200,000 injection (CANCELED) ONCE PRN, Starting on Sun03/17/16 at 1711, Until 03/18/16 at 0149, Intra-Operative (Intra-Procedure), Routine 1710 (Given - Provid er: Festus Serrano MD) oxyCODONE-acetaminophen (PERCOCET) 5-325 mg per tablet 1-2 tablet (CANCELED) 1-2 tablet, Oral, EVERY 4 HOURS PRN, Pain, Starting on Sun03/17/16 at 2056, Until Sun03/17/16 at 2345, Maximum dose of acetaminophen is 4000 mg from all sources in 24 hours., PACU Recovery 2224 (Given - Provid er: Servando Carias RN) sodium chloride 0.9 % flush 5-20 mL 5-20 mL, Intravenous, EVERY 1 MIN PRN, Starting on Sun03/17/16 at 1428, Until Sun03/17/16 at 2345, flush, Flush pertains to all indwelling lines. Flush per protocol found in the job aid using the link provided on this medication record., Day of Surgery (Day of Procedure), Routine thrombin (Bovine) (THROMBINAR) kit (CANCELED) ONCE PRN, Starting on Sun03/17/16 at 1711, Until 03/18/16 at 0149, Intra-Operative (Intra-Procedure) 1710 (Given - Provid er: Festus Serrano MD - Comment: with gelfoam) Linked Groups Order Group 1: scopolamine (TRANSDERM-SCOP) 1.5 mg (1 mg over 3 days) patch 1 patchJump to med 1 patch, Transdermal, EVERY 72 HOURS, First dose on Sun03/17/16 at 2200, Until Discontinued, Routine And scopolamine (TRANSDERM-SCOP) 1.5 mg patch Patch VerificationJump to med Transdermal, 2 TIMES DAILY, First dose on Sun03/18/16 at 0900, Until Discontinued, Verify scopolamine 1.5 mg patch. And scopolamine (TRANSDERM-SCOP) 1.5 mg patch Patch RemovalJump to med Transdermal, EVERY 72 HOURS, First dose on Sun03/20/16 at 2200, Until Discontinued, Remove scopolamine 1.5 mg patch documented in this encounter Care Teams Sales Operations Associate Relationship Specialty Start Date End Date Charan Sandoval MD [address] [place] [address] PCP - General Family Medicine 01/17/16 documented as of this encounter
--- OUTSIDE RECORDS SUMMARY | 2024-09-15 18:42 | XMS_ITS | Encounter Summary ---
Author Organization [facility] Address [facility] [place] [address] Care Team Providers Care Electrician Marine Name Role Phone RafalAngelo hammonds Primary Care Provider Encounter Details Date Type Department Care Team (Latest Contact Info) Description 01/05/2016 9:24 PM EDT - 01/05/2016 11:59 PM EDT [place] [id number] Discharge Disposition: Home Social History Tobacco Use Types Packs/Day Years Used Date Smoking Tobacco: Never Sex and Gender Information Value Date Recorded Sex Assigned at Not on file Gender Identity Not on file Sexual Orientation Not on file documented as of this encounter Medications at Time of Discharge Medication Sig Dispensed Refills Start Date End Date fluticasone (FLONASE) 50 mcg/actuation [place], Suspension 1 spray by Each Nare route as needed. 10/13/2015 sertraline (ZOLOFT) 50 mg tablet Take 25 mg by mouth daily. 02/10/2016 hydrocortisone 2.5 % cream Apply topically 2 times daily. Apply bid to face if flaring 02/10/2016 piroxicam (FELDENE) 20 mg capsule 20mg, PO, Once daily 03/21/2006 016 documented as of this encounter Plan of Treatment Not on file documented as of this encounter Procedures Procedure Name Priority Date/Time Associated Diagnosis Comments NON-COLLAR FUSER FINAL REPORT Routine 01/05/2016 10:12 AM EDT documented in this encounter Results * Non-Manager Community Development Final Report (01/05/2016 10:12 AM EDT) Diagnosis Discussion [id number] ?Location: [facility] The signing pathologist has (i) examined the relevant preparation(s) for the specimen(s) and (ii) rendered or confirmed the diagnosis(es). . ? Non-Manager Community Development Final DIAGNOSIS See Comment 01/07/16 ?Screened by: ? DMG ?Rescreened by: ?? KERRI,KERRI 01/10/16 ?Verified by: ? Donny HALE, Gui Flores ? Pathologist ? (Electronic Signature) DISCUSSION Parotid gland, right neck/tail: Cellular epithelial-myoepitheli al salivary gland neoplasm (see Note): Note: ??The liquid-based preparation contains cellular clusters of small ovoid to spindle cells present in background of myxoid stroma with admixed spindle cells. ??The cell block shows similar findings, however, the cellular clusters are also noted to contain small tubular structures. ??A rare mitotic figure is seen. Immunohistochemical stains show that the cellular clusters are predominantly p63 positive, and CK7 highlights epithelial cells lining the tubular structures. ??S100 stain is positive in background myxoid stroma. While a cellular variant of pleomorphic adenoma is favored, due to the limited sample, a malignant epithelial-myoepitheli al neoplasm cannot be entirely excluded. Clinicopathologic correlation is recommended. Dr. Frank has reviewed the cell block section and concurs with the above findings. --- Immunohistochemistry Studies --- ? Formalin-fixed, paraffin-embedded cell block sections are studied for p63, CK7, and S100 using the polymer technique with appropriate controls. These immunohistochemical studies provide ancillary information and are used only in conjunction with standard diagnostic procedures. CLINICAL INFORMATION Specimen Source : ?? Parotid gland, right neck/tail Pertinent Clinical Data and Significant Therapy: ?? (not provided) Clinical Impression : ?? Right parotid mass/intraparotid lymph node; benign versus malignant. Pertinent Radiologic Findings ??: ?? (not provided) Gross Description: ?? Received ??in CytoLyt ??approximately 10 ml. total volume of ??clear, pink fluid, with light flecks. ?? Also received 1 alcohol-fixed slide. ?? Total Preparation: Liquid Based Prep 1; Pap Stain 1; Cell Block 1. . CLINICAL INFORMATION Referring Identifier: ??[id number] 01/10/2016 11:35 AM EDT [facility] PAROTID GLAND STRUCTURE / Unknown 01/05/2016 10:12 AM EDT 01/05/2016 10:12 AM EDT Narrative Resulting Agency Comment Spec In Lab / AVH Zana Bazan DO PATHOLOGY/CYTOLOGY ORDERABLES Performing Organization Address City/State/[facility] Co de Phone Number [facility] [place] [phone] documented in this encounter Visit Diagnoses Not on filedocumented in this encounter Care Teams Electrician Marine Relationship Specialty Start Date End Date Angelo Lyles DO [address] [place] [address] PCP - General 08/23/10 01/16/16 documented as of this encounter
--- OUTSIDE RECORDS SUMMARY | 2024-09-15 18:42 | XMS_ITS | Encounter Summary ---
[place] [address] Care Team Providers Care Log Clerk Name Role Phone Charan Sandoval MD Primary Care Provider [phone] Encounter Details Date Type Department Care Team (Late st Contact Info) Description 04/17/2016 External Results [place] [address] Ruby Rodriguez AUD [facility] [place] [address] Social History Tobacco Use Types Packs/Day Years Used Date Smoking Tobacco: Never Smokeless Tobacco: Never Alcohol Use Standard Drinks/Week Comments Yes 0 (1 standard drink = 0.6 oz pur e alcohol) occasionally Sex and Gender Information Value Date Recorded Sex Assigned at Not on file Gender Identity Not on file Sexual Orientation Not on file documented as of this encounter Plan of Treatment Not on file documented as of this encounter Procedures Procedure Name Priority Date/Time Associated Diagnosis Comments AUDIOLOGY SCAN Routine 03/23/2016 documented in this encounter Results * Scan Doc: Audiology (03/23/2016) Ruby [facility] MGR SCAN EXT O RDR/RSLT documented in this encounter Visit Diagnoses Not on filedocumented in this encounter Care Teams Log Clerk Relationship Specialty Start Date End Date Charan Sandoval MD [address] [place], [place] [id number] PCP - General Family Medicine 01/17/16 documented as of this encounter
--- OUTSIDE RECORDS SUMMARY | 2024-09-15 18:42 | XMS_ITS | Encounter Summary ---
Author Organization [facility] Address [address] [place] [address] Care Team Providers Care Straight Slicing Machine Operator Name Role Phone Unavailable Primary Care Provider Unavailabl e Encounter Details Date Type Department Care Team (Late st Contact Info) Description 09/27/2020 Lab Requisition [facility] Pathology & Laboratory Medicine - [facility] [address] [place] [address] Outr Resulting Lab, Provider Social History Tobacco Use Types Packs/Day Years Used Date Smoking Tobacco: Never Assessed Interpersonal Safety Answer Date Record ed Physically Hurt Never 09/28/2020 Verbally Threaten Not on file 09/28/2020 Sex and Gender Information Value Date Recorded Sex Assigned at Not on file Legal Sex Male 12:27 EST Gender Identity Not on file Sexual Orientation Not on file documented as of this encounter Plan of Treatment Not on file documented as of this encounter Procedures Procedure Name Priority Date/Time Associated Diagnosis Comments ZZCOVID-19 TEST [facility] PCR Today 09/27/2020 11:39 EST COVID-19 TESTING Routine 09/27/2020 11:3 9 EST documented in this encounter Results * COVID-19 TEST [facility] PCR (09/27/2020 11:39 EST) Swab ENTIRE NASOPHARYNX / Unknown 09/27/2020 11:39 EST 09/27/2020 15:30 EST us Provider Outr Resulting Lab MICROBIOLOGY - GENER AL ORDERABLES Final Result [facility] [address] [place] [address] * COVID-19 TESTING (09/27/2020 11:39 EST) COVID-19 rt-PCR Result Negative Negative 09/28/2020 16:43 EST [facility] Comment: Negative results do not preclude 2019-nCoV infection and should not be used as the sole basis for treatment or other patient management decisions. Negative results must be combined with clinical observations, patient history, and epidemiological information. This test was developed and its performance characteristics determined by [facility]. It has not been cleared or approved by the US Food and Drug Administration. FDA does not require this test to go through premarket FDA review. This test is used for clinical purposes. It should not be regarded as investigational or for research. This laboratory is certified under the Clinical Laboratory Improvement Amendments (CLIA) as qualified to perform high complexity clinical laboratory testing. This test is based on the CDC COVID-19 Emergency Use Authorization (EUA) assay, with minor modification as defined by the FDA Performed on the XVionicso 7 Flex. Performing Lab Quantstudio 7 [facility] 09/28/2020 16:43 EST [facility] Swab 09/27/2020 11:3 9 EST 09/27/2020 15:30 EST us Provider Outr Resulting Lab MICROBIOLOGY - GENER AL ORDERABLES Final Result [facility] [address] [place] [address] documented in this encounter Visit Diagnoses Not on filedocumented in this encounter
--- OUTSIDE RECORDS SUMMARY | 2024-09-15 18:42 | XMS_ITS | Encounter Summary ---
[place] [address] Care Team Providers Care Shovel Log Loader Operator Name Role Phone Charan Sandoval MD Primary Care Provider [phone] Encounter Details Date Type Department Care Team (Late st Contact Info) Description 07/02/2017 Telephone [place] [phone] Cielo Fragoos Social History Tobacco Use Types Packs/Day Years Used Date Smoking Tobacco: Never Smokeless Tobacco: Never Alcohol Use Standard Drinks/Week Comments Yes 0 (1 standard drink = 0.6 oz pur e alcohol) occasionally Sex and Gender Information Value Date Recorded Sex Assigned at Not on file Gender Identity Not on file Sexual Orientation Not on file documented as of this encounter Miscellaneous Notes * Telephone Encounter - Cielo Fragoso - 07/02/2017 10:49 AM EDT Left message for patient to call back to schedule 6 week f/u with EDWARD documented in this encounter Plan of Treatment Not on file documented as of this encounter Visit Diagnoses Not on filedocumented in this encounter Care Teams Shovel Log Loader Operator Relationship Specialty Start Date End Date Charan Sandoval MD [address] [place] [address] PCP - General Family Medicine 01/17/16 documented as of this encounter
--- OUTSIDE RECORDS SUMMARY | 2024-09-15 18:42 | XMS_ITS | Encounter Summary ---
Author Organization [facility] Address [facility] [place] [address] Care Team Providers Care Optical Effects Line Up Person Name Role Phone Angleo Lyles DO Primary Care Provider [phone] Encounter Details Date Type Department Care Team (Late st Contact Info) Description 12/27/2015 - 12/27/2015 11:59 PM EDT Hospital Encounter Radiology Library at [facility] [place] [phone] [facility] Disposition: Home Social History Tobacco Use Types Packs/Day Years Used Date Smoking Tobacco: Never Sex and Gender Information Value Date Recorded Sex Assigned at Not on file Gender Identity Not on file Sexual Orientation Not on file documented as of this encounter Medications at Time of Discharge Medication Sig Dispensed Refills Start Date End Date fluticasone (FLONASE) 50 mcg/actuation [place], Suspension 1 spray by Each Nare route [...] Procedure Name Priority Date/Time Associated Diagnosis Comments FILM LIBRARY STORAGE ONLY MR SPINE Routine 12/27/2015 12:00 AM EDT Pain documented in this encounter Results * Film Library- Storage only MR Spine (12/27/2015 12:00 AM EDT) Narrative RAD - 01/24/2016 10:52 PM EDT This exam is for storage only and is auto-finalizing. Dr Hao Escobedo IMLandry FILM LIBRARY ORD ERABLES [place], [place] documented in this encounter Visit Diagnoses Diagnosis Pain Generalized pain documented in this encounter Care Teams Optical Effects Line Up Person Relationship Specialty Start Date End Date Angelo Lyles DO [address] [place] [address] [address] [place] [address] PCP - General 08/23/10 01/16/16 documented as of this encounter
--- OUTSIDE RECORDS SUMMARY | 2024-09-15 18:42 | XMS_ITS | Encounter Summary ---
[place] [address] Care Team Providers Care Business Transformation Manager Name Role Phone Rafal, Angelo MOREIRA Primary Care Provider [phone] Reason for Visit * Reason Comments Seborrheic Dermatitis Encounter Details Date Type Department Care Team (Late st Contact Info) Description 02/08/2012 4:45 PM EDT Office Visit Dermatology [facility] [address] [place] [address] David Olguin MD [address], [place] [address] Seborrheic dermatitis (Primary Dx); Folliculitis Social History Tobacco Use Types Packs/Day Years Used Date Smoking Tobacco: Never Sex and Gender Information Value Date Recorded Sex Assigned at Not on file Gender Identity Not on file Sexual Orientation Not on file documented as of this encounter Progress Notes * David Olguin MD - 02/08/2012 5:19 PM EDT Problems: 1. Followup seborrheic dermatitis. 2. Acneiform folliculitis, groin area. Moncho follows up and continues to get episodes of folliculitis in the groin, on again off again, and has for the last couple of years. It is always on the mons pubis area. I had seen him in the past and we had tried mupirocin for the nasal nares and for local application, but with only limited effect. Benzoyl peroxide has worked the best. It dries it out faster when he gets an acute outbreak. He liked the Cutar lotion and HCcr 2.5% for seborrheic dermatitis and he has been using hydrocortisone cream. One 2.5% cream 30-g tube has lasted him for the last year. Physical examination today reveals a pleasant 31-year-old who has fairly minimal seborrheic dermatitis of the face, nasal labial folds, and mustache area. He has no current active outbreak of his folliculitis on the mons pubis area. Assessment and Plan: 1. Acneiform folliculitis, groin. a. Recommended that he use benzoyl peroxide topically on a prophylactic basis every day to every other day, perhaps once every three days to see if this will not prevent recurrences. b. Discussed the lack of utility of single courses of antibiotics for treatment of this chronic problem. I do not want to start him on regular dosing oral for this. 2. Seborrheic dermatitis. a. Continue with Cutar lotion applying to affected areas and also as needed 2.5% hydrocortisone cream 30 g dispensed with five refills. I have asked the patient to let me know how this works for him. I look forward to seeing him back p.r.n. for any new lesions/concerns. Copy: Angelo Lyles D.O. documented in this encounter Plan of Treatment Not on file documented as of this encounter Visit Diagnoses Diagnosis Seborrheic dermatitis- Primary Seborrheic dermatitis, unspecified Folliculitis Other specified disease of hair and hair follicles documented in this encounter Care Teams Business Transformation Manager Relationship Specialty Start Date End Date Angelo Lyles DO [address] [facility] [place] [address] PCP - General 08/23/10 01/16/16 documented as of this encounter
--- OUTSIDE RECORDS SUMMARY | 2024-09-15 18:42 | XMS_ITS | Encounter Summary ---
Author Organization [facility] Address [facility] [place] [address] Care Team Providers Care Computer Forensics Analyst Name Role Phone Charan Sandoval MD Primary Care Provider [phone] Reason for Visit * Reason Comments Post Op Encounter Details Date Type Department Care Team (Late st Contact Info) Description 03/23/2016 2:30 PM EDT Office [place] [address] Nam Hamilton, PA [facility] DR [place]ARY[place] [address] Pleomorphic adenoma Social History Tobacco Use Types Packs/Day Years [...] Sign Reading Time Taken Comments Blood Pressure 152/93 03/23/2016 2:19 PM EDT Pulse 85 03/23/2016 2:19 PM EDT Temperature 36.3 ??C (97.3 ??F) 03/23/2016 2:19 PM ED T Respiratory Rate - - Oxygen Saturation - - Inhaled Oxygen Concentration - - Weight 118.3 kg (260 lb 14.4 oz) 03/23/2016 2:19 PM EDT Height 180.3 cm (5' 11) 03/23/2016 2:19 PM EDT Body Mass Index 36.39 03/23/2016 2:19 PM EDT documented in this encounter Progress Notes * Nam Hamilton PA - 03/23/2016 2:22 PM EDT Tommy Xie is 35 years of age and is status post: Case Date: 03/17/2016 Surgeon: Surgeon(s) and Role: * Festus Green MD - Primary * Yumiko Betancourt MD - Resident-Grounds Supervisor * Rasta Padron MD - Resident-Surgeon Te 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 Findings: right parotid mass excised. Capsule intact ? Surgical Pathology DIAGNOSIS Right parotid mass 1. Pleomorphic adenoma, polylobulated, 1.3 cm, at inked margin of specimen 2. Atrophic parotid gland 3. Two (0/2) lymph nodes ?? negative for malignancy Postoperatively the patient reports that he did very well with minimal pain. He has noted no excessive swelling or redness around the incision site and is pleased with its appearance. He has noted a bit of weeping on occasion but that has improved. There is been no concern for facial weakness. He does admit to some numbness in the typical areas such as the preauricular and ear lobe region. He did mention a slow hearing loss just prior to the surgery that he extruded to the tumor. He reports this is been present for approximately 2 weeks and he does not feel it was related to the surgery at all. He however does note that there is been no recovery in the hearing after the surgery. He denies any dizziness but does admit to an occasional tinnitus. On examination he appears healthy in no acute distress. The incision appears to be healing very well without evidence of infection. The facial nerve is are grossly intact in all branches. Examination of the ear with the operating microscope reveals minimal debris in the canal which was lifted out with alligator forceps. Tympanic membrane appears translucent showing no evidence middle ear pathology. Impression: Excellent postoperative course. I question a sudden hearing loss affecting his right ear. I do not feel it is related to the pleomorphic adenoma. Hearing test is obtained today and demonstrates the following: Hearing is within normal limits in both ears. There is a slight conductive component in the low frequencies. The tympanometry is normal bilaterally. It was thought that the conductive component may be possible due to inserts. The hearing is symmetrical. The hearing test was reassuring to note no sensorineural hearing loss, however, should he have any persistent symptoms of tinnitus subjective sense of hearing loss, or any other otologic symptoms he is to contact us for review. He can be discharged from our care at this point with the understanding should any concerns in the meantime regarding his hearing or his parotid surgery he is to call. Nam Hamilton PA-C Department of Otolaryngology [facility] [place] [address] Office Phone - documented in this encounter Plan of Treatment Not on file documented as of this encounter Visit Diagnoses Diagnosis Pleomorphic adenoma Benign neoplasm of unspecified site documented in this encounter Care Teams Computer Forensics Analyst Relationship Specialty Start Date End Date Charan Sandoval MD [address] [place] [address] PCP - General Family Medicine 01/17/16 documented as of this encounter
--- OUTSIDE RECORDS SUMMARY | 2024-09-15 18:42 | XMS_ITS | Encounter Summary ---
Author Organization [facility] Address [facility] [place] [address] Care Team Providers Care Government Affairs Director Name Role Phone Charan Sandoval MD Primary Care Provider [phone] Reason for Referral * Physical Therapy (Routine) - Specialty Diagnoses / Procedures Referred By Contac t Referred To Contact Diagnoses Facial pain Neck pain Festus Green MD [facility] [place] [address] Referral ID Status Reason Start Date Expiration Date V isits Requested Visits Authorized [id number] Evaluate and Treat 09/20/2017 03/19/2018 12 12 Encounter Details Date Type Department Care Team (Late st Contact Info) Description 09/20/2017 8:20 AM EST Office [place] [address] Festus Green MD [facility] [place] [address] Facial pain; Sialadenitis; Neck pain Social History Tobacco Use Types Packs/Day Years [...] Sign Reading Time Taken Comments Blood Pressure 140/95 09/20/2017 8:24 AM EST Pulse 79 09/20/2017 8:24 AM EST Temperature 37 ??C (98.6 ??F) 09/20/2017 8:24 AM EST Respiratory Rate - - Oxygen Saturation 96% 09/20/2017 8:24 AM EST Inhaled Oxygen Concentration - - Weight 127.3 kg (280 lb 11.2 oz) 09/20/2017 8:24 AM EST Height 180.3 cm (5' 11) 09/20/2017 8:24 AM EST Body Mass Index 39.15 09/20/2017 8:24 AM EST documented in this encounter Progress Notes * Festus Green MD - 09/20/2017 8:20 AM EST [facility] Ot[facility] - Head & Neck Surgery Office Visit Tommy Xie presents for follow-up for pain and discomfort in the left parotid region andneck. He had had parotid tumor excision on the right side in 2015 and did well for about 8 months but then started to develop discomfort in the parotid region with stiffness in the neck. We have tried a course of antibiotics and steroids as well as sialagogues and massage with equivocal results. Wesh[place]o tried a Botox injection into the gland in August with again equivocal results. The patient reports that the pain the gland does seem a bit less acute and he is not experiencing as many sharp bouts of pain but he still has a dull ache in the gland as well as stiffness in the neck. When I further probed this he does seem to feel that the overall level of discomfort is better compared to whenit first began. On exam his facial nerve function is intact. He has a hypertrophic and tender parotidectomy scar. The gland itself is soft to palpation and nontender. There is no palpable adenopathy. The remainder of his head neck examination is unremarkable. At this time I would not recommend completion parotidectomy as it seems on the whole his symptoms are improving. Recommendation at this time is for anti- inflammatory, sialagogues with parotid massage, and referral to physical therapy for heat treatment to the neck and gland as well as exercises forthe neck stiffness. We will see how this goes for the next 2-3 months and he will let me know if hehas not had any improvement. Time spent in counseling and discussion of the above: 15/15 minutes documented in this encounter Plan of Treatment Scheduled Referrals Name Type Priority Associated Diagnoses Orde r Schedule Referral to Physical Therapy Outpatient Referral Routine Facial pain Neck pain Ordered: 09/20/2017 documented as of this encounter Visit Diagnoses Diagnosis Facial pain Headache Sialadenitis Sialoadenitis Neck pain Cervicalgia documented in this encounter Care Teams Government Affairs Director Relationship Specialty Start Date End Date Charan Sandoval MD [address] [place] [address] PCP - General Family Medicine 01/17/16 documented as of this encounter
--- OUTSIDE RECORDS SUMMARY | 2024-09-15 18:42 | XMS_ITS | Encounter Summary ---
Author Organization [facility] [place] [address] Care Team Providers Care Activity Aid Name Role Phone Charan Sandoval MD Primary Care Provider [phone] [phone] Reason for Visit * Reason Comments Botox Injection botox injection and ultrasound. Neck Pain right sided neck and jaw pain that patijorge luis describes as a constant dull ache. * High Dollar Medication (Urgent) - Closed Specialty Diagnoses / Procedures Referred By Payal orona Referred To Contact Otolaryngology Diagnoses Headache Sialoadenitis, unspecified Procedures TC ONABOTULINUMTOXINA, 1 UNIT, INJECTION PRO CHEMODENERV PAROTID&SUBMANDIBL SALIVARY GLNDS BILATERAL Festus Green MD [facility] [place] [address] [facility] Otolaryngology [address] [place] [phone] Referral ID Status Reason Start Date Expiration Date V isits Requested Visits Authorized [id number] Closed Evaluate and Treat 08/08/2017 08/08/2018 1 1 Encounter Details Date Type Department Care Team (Late st Contact Info) Description 08/09/2017 4:00 PM EST Office Visit [place] [address] Festus Green MD [facility] [place] [address] Sialadenitis; Facial pain Social History Tobacco Use Types Packs/Day [...] Sign Reading Time Taken Comments Blood Pressure - - Pulse - - Temperature - - Respiratory Rate - - Oxygen Saturation - - Inhaled Oxygen Concentration - - Weight 127.9 kg (282 lb) 08/09/2017 3:59 PM EST Height 179.1 cm (5' 10.5) 08/09/2017 3:59 PM ES T Body Mass Index 39.89 08/09/2017 3:59 PM EST documented in this encounter Progress Notes * Festus Green MD - 08/09/2017 4:00 PM EST [facility] Otolaryngology - Head & Neck Surgery Office Visit Tommy Xie presents for Botox injection into the parotid bed. He has a history of parotid tumor excision about 1 year ago. This parotid mass had been identified after he developed acute parotitis and once removed he did well for about 9 months but then started to develop pain in the parotid bed extending down into the neck suggesting a chronic inflammatory problem. We initially treatedhim with scopolamine patch as well as antibiotics and steroids and sialagogues and parotid and parotid massage with no improvement. 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 As a next step I recommended that we try a Botox injection into the remaining gland. The patient now presents for Botox injection. Procedure: Botulinum toxin chemodenervation of right parotid gland. Indications: Chronic sialoadenitis Description: Informed consent was obtained and timeout was performed. The right parotid bed was cleansed with alcohol wipe. Using the ultrasound we localized the parotid bed and under ultrasound guidance directed a 27-gauge needle with a 1 cc syringe to 3 different locations in the parotid gland. Amix of 10 units per 0.1 mL of botulinum a toxin was prepared. And a total of 0.4 mL which equals 40 units was injected into these 3 sites distributed evenly among the 3 sites. The patient tolerated procedure well without any complications. He was instructed that the effects of the Botox would not kick in for probably 2-3 weeks after which point we may start to see some improvement. If the Botox does not work our next step may be reexploration of the parotid bed and a completion parotidectomy. He will let me know in about a month how he is doing and we will arrange follow-up accordingly. documented in this encounter Plan of Treatment Not on file documented as of this encounter Visit Diagnoses Diagnosis Sialadenitis Sialoadenitis Facial pain Headache documented in this encounter Administered Medications Inactive Administered Medications - up to 3 most recent administrations Medication Order MAR Action Action Date Dose Rate Site botulinum toxin type A (BOTOX) injection 40 Units 40 Units, Intramuscular, ONCE, 1 dose, On Coty 08/09/17 at 1715, Routine Given 08/09/2017 4:50 PM EST 40 Units documented in this encounter Care Teams Activity Aid Relationship Specialty Start Date End Date Charan Sandoval MD [address] [place] [address] PCP - General Family Medicine 01/17/16 documented as of this encounter
--- OUTSIDE RECORDS SUMMARY | 2024-09-15 18:42 | XMS_ITS | Encounter Summary ---
Author Organization [facility] [place] [address] Care Team Providers Care Fountain Waitress/Waiter Name Role Phone Charan Sandoval MD Primary Care Provider [phone] Reason for Visit * Auth/Cert Specialty Diagnoses / Procedures Referred By Payal orona Referred To Contact Diagnoses right parotid neoplasm Procedures PRO EXC PAROTD, LAT LOBE, DISSECT 5TH NERV PRG SOMATOSENSORY TEST, ANY/ALL PER. NERVES, TRUNK OR HEAD EXC.PAROTID TUMOR OR GLAND, LATERAL LOBE Referral ID Status Reason Start Date Expiration Date Visits Re quested Visits Authorized [id number] 1 1 Encounter Details Date Type Department Care Team (Late st Contact Info) Description 03/17/2016 4:03 PM EDT Anesthesia [place] [id number] Erik Real MD [facility] [place] [address] Hawk Pitts MD [facility] [place] [address] Anesthesia Record Procedure Summary Procedure Name Responsible Anesthesiologist Anesthesia Start Time Anesthesia Stop Time EXC.PAROTID TUMOR OR GLAND, LATERAL LOBE, W DISSECTION & PRESERVATION FACIAL NERVE (WRVU 17.16) (Right) Erik Real MD 03/17/16 1603 03/17/16 2108 Events Date Time Event Comment 03/17/2016 1603 Start 1608 AN Verify 1608 An Start Data 1614 An Induction 1620 An Intubation 1630 Anesthesia Ready 1648 Procedure Start 1722 1728 Handoff Intra-procedure anesthesia care was transferred after review of the patient's history, current anesthetic/surgical status and plan, according to the ANES Provider Handoff Checklist. 1805 Break/Relief In CARMELLA Reynaga VADIM KENDALL CRNA 1834 Break/Relief Out 2057 Extubation/LMA Out 2099 an stop data 2107 Recovery or ICU Handoff Mónica ent care was transferred to the destination unit staff after review of the patient's medical history, current anesthetic/surgical status and plan, according to the Provider Handoff Checklist. 2107 Stop Patient denies pain/nausea. Exchanging well. VSS Meds Name Total Midazolam 2 mg fentaNYL 50 mcg IV Lidocaine 100 mg Propofol 500 mg Ondansetron 8 mg Dexamethasone 8 mg Esmolol 50 mg Succinylcholine 140 mg Ampicillin-Sulbactam 6 g HYDROmorphone 0.6 mg lactated ringers infusion 1,000 mL 2,000 mL * Agents Name O2 Air N2O Sevoflurane (et) * Blood No blood administrations on file. Lines, Drains, and Airways Type Details Placement Removal Urethral Catheter 03/17/16; Surgery lo nger than 2 hours; Acute urinary retention; indwelling double lumen catheter; latex; 14; inserted at this facility; 10; 10; drainage bag to dependent drainage; inserted without difficulty by ANA MARIA Pantoja RN 03/17/16 0000 by Lainey Pantoja RN (RETIRED) Peripheral IV Line - Single Lumen 03/17/16; 1504; metacarpal vein right (top of hand); [id number] catheter system; 18 gauge; BSmithRN; intradermal injection; 01/14/18 (Auto removal via utility); 0921 (Auto removal via utility) 03/17/16 1504 by Servando Arias RN 01/14/18 0921 by [employer], Tyson (RETIRED) Peripheral IV Line - Single Lumen 03/17/16; 1603; metacarpal vein right (top of hand); no longer indicated, catheter intact; 03/17/16; 2320 03/17/16 1603 by Hawk Pitts MD 03/17/16 232 by Servando Carias, RN ETT Mask Ventilation: Difficult (3); ETT Type: Cuffed, Oral, SIMI; ETT Size: 7.5 mm; Mac Blade: 4; Exchange: Bougie; Notes: Asleep, Pre-O2, Cricoid Pressure, Stylette; Attempts: 2; Laryngoscopy Grade: 2; ETT Placement Verified By: Capnometry, Visual; Secured at Teeth: 22 cm; Inserted by: Ángel; Removal Date: 03/17/16; Removal Time: 205703/17/161619 by Hawk Pitts MD 03/17/162057 by Rosamaria Silver CRNA documented in this encounter Social History Tobacco Use Types Packs/Day Years [...] on file documented as of this encounter OR Notes * Anesthesia Postprocedure Evaluation - Erik Real MD - 03/17/2016 9:32 PM EDT [facility] [place] of Anesthesiology Post-procedure Note Patient: Tommy Xie Procedure Summary Date Anesthesia Start Anesthesia Stop Room / Location 03/17/16 1603 2108 [facility] OR [facility] MAIN OR Procedure Diagnosis Surgeon Responsible Provider EXC.PAROTID TUMOR OR GLAND, LATERAL LOBE (Right ); FACIAL NERVE MONITORING, SETUP PERIPHERAL (N/A Neck) Parotid neoplasm (right parotid neoplasm) Festus Green MD Nguyen, Tung T, MD All Anesthesia Providers: Anesthesiologist: Erik Real MD; Sebastian Neal MD C[facility] INTER[facility]IEWS INTERN: Wilver Rainey CRNA; Rosamaria Pineda CRNA Vulcan Crewmember: Hawk Pitts MD Last (1hr) Vitals: BP Temp Pulse Resp SpO2 Patient Location: PACU/[facility] Level of Consciousness: Conscious but Sleepy Pain Management: Satisfactory Analgesia PONV: None Cardiovascular Status: At Baseline Respiratory Status: Supplemental O2 (NC or FM) Postoperative Fluid Status: Intravascular EUvolemia Possible Anesthetic Complications: NONE apparent at time of evaluation Final Primary Anesthesia Type: General (The anesthetic type performed was the same as planned.) Comments: * Anesthesia Preprocedure Evaluation - Hawk Pitts MD - 03/16/2016 6:38 PM EDT Pre-Anesthesia Evaluation for: Tommy Xie a 35 y.o. male. Procedure(s): EXC.PAROTID TUMOR OR GLAND, LATERAL LOBE FACIAL NERVE MONITORING, SETUP PERIPHERAL Patient Active Problem List Diagnosis ??? Nevus ??? Seborrheic dermatitis ??? Folliculitis Past Medical History Diagnosis Date ??? Sleep apnea uses CPAP Past Surgical History Procedure Laterality Date ??? Vasectomy 2013 ??? Hip surgery 2002,2004 History Substance Use Topics ??? Smoking status: Never Smoker ??? Smokeless tobacco: Never Used ??? Alcohol use: 0.0 oz/week 0 Standard drinks or equivalent per week Comment: Weekly History Drug Use No No Known Allergies Medications: MAR and/or home medications have been reviewed. Physical Exam: There were no vitals filed for this visit. There is no height or weight on file to calculate BMI. 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 Prior anesthetic in 2003: Easy Mask, Grade 1 view with Mac 4. Slightly anterior. Plan: GETA. Simi tube. Facial nerve monitoring. Standard ASA monitors Region - Other Informed Consent: PAT Staff Note documented in this encounter Plan of Treatment Not on file documented as of this encounter Visit Diagnoses Not on filedocumented in this encounter Administered Medications Inactive Administered Medications - up to 3 most recent administrations Medication Order MAR Action Action Date Dose Rate Site ampicillin-sulbactam (UNASYN) injection PRN, Starting on Sun03/17/16 at 1638, Until Sun03/17/16 at 2110, Anesthesia Intra-op, Routine Given 03/17/2016 7:38 PM EDT 3 g Given 03/17/2016 4:38 PM EDT 3 g dexamethasone (DECADRON) injection PRN, Starting on Sun03/17/16 at 1636, Until Sun03/17/16 at 2111, Anesthesia Intra-op, Routine Given 03/17/2016 4:36 PM EDT 8 mg esmolol (BREVIBLOC) injection PRN, Starting on Sun03/17/16 at 1624, Until Sun03/17/16 at 2111, Anesthesia Intra-op, Routine Given 03/17/2016 4:24 PM EDT 50 mg fentaNYL 50 mcg/mL multi-dose injection PRN, Starting on Sun03/17/16 at 1636, Until Sun03/17/16 at 2111, Pain, Anesthesia Intra-op, Routine Given 03/17/2016 4:36 PM EDT 50 mcg HYDROmorphone (DILAUDID) injection PRN, Starting on Sun03/17/16 at 1757, Until Sun03/17/16 at 2111, Pain, Anesthesia Intra-op, Routine Given 03/17/2016 7:39 PM EDT 0.2 mg Given 03/17/2016 6:44 PM EDT 0.2 mg Given 03/17/2016 5:57 PM EDT 0.2 mg lactated ringers infusion 1,000 mL 1,000 mL, at 100 mL/hr, Intravenous, CONTINUOUS, Starting on Sun03/17/16 at 1445, Until Sun03/17/16 at 2345, Day of Surgery (Day of Procedure) New Bag 03/17/2016 8:49 PM EDT New Bag 03/17/2016 4:51 PM EDT New Bag 03/17/2016 4:03 PM EDT lidocaine (PF) (XYLOCAINE) 100 mg/5 mL (2 %) injection PRN, Starting on Sun03/17/16 at 1614, Until Sun03/17/16 at 2111, Anesthesia Intra-op, Routine Given 03/17/2016 4:14 PM EDT 100 mg midazolam (PF) (VERSED) 1 mg/mL multi-dose injection PRN, Starting on Sun03/17/16 at 1602, Until Sun03/17/16 at 2111, Sleep, Anesthesia Intra-op, Routine Given 03/17/2016 4:02 PM EDT 2 mg ondansetron (ZOFRAN) injection PRN, Starting on Sun03/17/16 at 2015, Until Sun03/17/16 at 2111, Nausea, Anesthesia Intra-op, Routine Given 03/17/2016 8:15 PM EDT 8 mg propofol (DIPRIVAN) 10 mg/mL bolus injection (Anesthesia) PRN, Starting on Sun03/17/16 at 1614, Until Sun03/17/16 at 2111, Anesthesia Intra-op Given 03/17/2016 4:14 PM EDT 500 mg succinylcholine (ANECTINE) injection PRN, Starting on Sun03/17/16 at 1614, Until Sun03/17/16 at 2111, Anesthesia Intra-op, Routine Given 03/17/2016 4:14 PM EDT 140 mg documented in this encounter Care Teams Fountain Waitress/Waiter Relationship Specialty Start Date End Date Charan Sandoval MD [address] [place] [address] PCP - General Family Medicine 01/17/16 documented as of this encounter
--- OUTSIDE RECORDS SUMMARY | 2024-09-15 18:42 | XMS_ITS | Encounter Summary ---
Author Organization [facility] Address [facility] [place] [address] Care Team Providers Care Milk Bottling Machine Operator Name Role Phone Charan Sandoval MD Primary Care Provider [phone] [phone] Reason for Visit * Reason Comments Follow-up facial pain and resu lts from an M.R.I/right sided discomfort always there and stiffness in the right neck Encounter Details Date Type Department Care Team (Late st Contact Info) Description 06/28/2017 2:20 PM EDT Office [place] [address] Festus Green MD [facility] [place] [address] Facial pain; Sialadenitis Social History Tobacco Use Types Packs/Day Years [...] - Inhaled Oxygen Concentration - - Weight 127.4 kg (280 lb 12.8 oz) 06/28/2017 2:37 PM EDT Height 179.1 cm (5' 10.5) 06/28/2017 2:37 PM ED T Body Mass Index 39.72 06/28/2017 2:37 PM EDT documented in this encounter Progress Notes * Festus Green MD - 06/28/2017 2:20 PM EDT [facility] Otolaryngology - Head & Neck Surgery Office Visit Tommy Xie presents for follow-up. 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 Just prior surgery he interestingly had acute parotitis which led to discovery ofthe parotid mass. After surgery he had no issues and did quite well for about 9 months but then developed tenderness in the right parotid bed as well as pain radiating down into the neck. No facial we akness. When I saw him back in May it was unclear what the etiology of this was and with decidedto check an MRI scan to ensure that there is no evidence of recurrence of his pleomorphic adenoma or some other pathology. I personally reviewed his MRI today results as follows: FINDINGS: The ventricles are normal size and configuration. No intracranial masses or mass effect. The midline structures appear normal. The bilateral IACs are unremarkable. No diffusion-weighted abnormalities. No abnormal parenchymal enhancement. ?? Prominent scarring is noted in the superficial aspect of the right parotid gland. Hyperenhancing tissue without discrete mass identified within the superior aspect of the residual right parotid gland, immediately behind the mandibular ramus. Several small nodules noted within the remaining right parotid gland best appreciated on series 11 image 21. The largest of these measures approximately 8 mm in size. ?? The TMJs are unremarkable within the limitations of this study. ?? No abnormalities identified along the course of the trigeminal nerves. Meckel's caves are unremarkable. The muscles of mastication are unremarkable. No cavernous sinus abnormalities detected. ? IMPRESSION Postsurgical changes in the superficial aspect of the right parotid gland. Associated with this is hyperenhancing parotid tissue immediately behind the mandibular ramus. Findings are nonspecific and may represent postoperative inflammation. Aside from several subcentimeter intraparotid lymph nodes, no discrete mass is identified. ?? No trigeminal nerve abnormalities identified. ?? Normal evaluation of the brain. His head neck exam is significant for normal facial function with some tenderness over the right parotid bed but otherwise unremarkable. It is unclear to me why he developed inflammation so late after his surgery but it appears that he has a chronic sialoadenitis. And I would like to treat it as such. We will place him on a course of antibiotics and a steroid taper. I also recommended aggressive massage and hydration as well as sialagogues such as lemon wedges or lemon candy several times a day. He expressed understanding of theserecommendations. I would like to see him back in 6 weeks for reevaluation. If no improvement we could consider Botox injection into the gland and see if that will reverse this situation. Time spent in counseling and discussion of the above: 15/15 minutes documented in this encounter Plan of Treatment Not on file documented as of this encounter Visit Diagnoses Diagnosis Facial pain Headache Sialadenitis Sialoadenitis documented in this encounter Care Teams Milk Bottling Machine Operator Relationship Specialty Start Date End Date Charan Sandoval MD [address] [place] [address] PCP - General Family Medicine 01/17/16 documented as of this encounter
--- OUTSIDE RECORDS SUMMARY | 2024-09-15 18:42 | XMS_ITS | Encounter Summary ---
Author Organization [facility] Address [facility] [place] [address] Care Team Providers Care Training Intern Name Role Phone Charan Sandoval MD Primary Care Provider [phone] [phone] Encounter Details Date Type Department Care Team (Late st Contact Info) Description 01/06/2004 Orders [place] [address] Clark Durant Jr., MD [facility] [place] [address] Social History Tobacco Use Types Packs/Day Years Used Date Smoking Tobacco: Never Assessed Sex and Gender Information Value Date Recorded Sex Assigned at Not on file Gender Identity Not on file Sexual Orientation Not on file documented as of this encounter Plan of Treatment Not on file documented as of this encounter Procedures Procedure Name Priority Date/Time Associated Diagnosis Comments SURGICAL PATHOLOGY REPORT Routine 01/06/2004 5:11 PM EDT documented in this encounter Results * Surgical Pathology Report (01/06/2004 5:11 PM EDT) Surgical Pathology Report [id number] ? Location: [place]; [facility]; A The signing pathologist has (i) examined the relevant preparation(s) for the specimen(s) and (ii) rendered or confirmed the diagnosis(es). . ?Pathology Surgical Pathology Final Report Clinical Information Specimen Submitted: A - (R) Hip labrum Clinical History: (R) Hip impingement Gross Description Labeled/Fixative: ? Right hip labrum, fresh. Qty/Size/Weight: ?Two, 3.5 x 2 x 0.6 cm. Tissue Description: ?? Fragments of bob-white, focally hemorrhagic, fibrous ?tissue. ??The larger fragment measures 2.5 x 1.5 x 0.6 cm and consists of a smooth, bob-white, fibrous surface on one side and a ragged, downs to yellow, hemorrhagic surface on the other. ??The smaller fragment measures 1.8 x 0.6 x 0.3 cm. ??It consists of a smooth, bob-white side with a bob, focally hemorrhagic area on the other side. ??The rough and hemorrhagic side of each fragment is inked. ??The specimen is serially sectioned perpendicular to the smooth side. Sections/Processi ng: ??The larger fragment is submitted in ?(1); smaller in (2). ??(T2) ??aje/TLW Microscopic Description Slides reviewed, microscopic description not recorded. Diagnosis Bone (labrum, right hip): ??Fragments of dense regular connective tissue, synovium and scant ??hyaline cartilage with focal neovascularizatio n, consistent with ??trauma. CR-0 01/08/04 [facility] 01/08/04 Verified by: ? Marcell Patel MD, PhD ?Pathologist ?(Electronic Signature) The attending pathologist whose signature appears on this report has reviewed all diagnostic slides and has edited the gross and/or microscopic portion of the report in rendering the final pathologic diagnosis. [facility] 01/06/2004 5:11 PM EDT Clark Durant Jr., MD PATHOLOGY/CYTOLOG Y ORDERABLES [facility] documented in this encounter Visit Diagnoses Not on filedocumented in this encounter Care Teams Training Intern Relationship Specialty Start Date End Date Charan Sandoval MD [address] [place] [address] PCP - General Family Medicine 01/17/16 documented as of this encounter
--- OUTSIDE RECORDS SUMMARY | 2024-09-15 18:42 | XMS_ITS | Clinical Summary ---
Author Organization [facility] Address [address] [place] [address] Care Team Providers Care Strategic Partner Development Manager Name Role Phone Unavailable Primary Care Provider Unavailabl e Encounters Date Type Department Care Team Description 09/12/2024 Lab Requisition [facility] Pathology & Laboratory Medicine - [address] [address] Outr Resulting Lab, Provider from Last 3 Months Social History Tobacco Use Types Packs/Day Years Used Date Smoking Tobacco: Never Assessed Interpersonal Safety Answer Date Record ed Physically Hurt Never 09/28/2020 Verbally Threaten Not on file 09/28/2020 Sex and Gender Information Value Date Recorded Sex Assigned at Not on file Legal Sex Male 12:27 EST Gender Identity Not on file Sexual Orientation Not on file Plan of Treatment Health Maintenance Due Date Last Done Comments Hepatitis C Screen 1982 Hepatitis B Vaccine (1 of 3 - 19+ 3-dose series) 11/10 COVID-19 Vaccine ( season) 2024 Procedures Procedure Name Priority Date/Time Associated Diagnosis Comments CELIAC DISEASE PANEL Routine 09/12/2024 10:00 EST from Last 3 Months Results * CELIAC DISEASE PANEL (09/12/2024 10:00 EST) Tissue Transglutaminase Antibody, IgA <4.0 <20.0 CU 09/15/2024 13:47 EST [facility] Comment: A negative result may be due to IgA deficiency and does not rule out celiac disease. Negative: <20.0 CU Weak Positive: 20.0-30.0 CU Positive: >30.0 CU Results were obtained with the [employer] QUANTA Flash h-tTG IgA chemiluminescent immunoassay. Values obtained with different manufacturers' assay methods may not be used interchangeably. IgA 281 85 - 499 mg/dL 09/15/2024 13:47 EST [facility] Celiac Disease Interpretation Negative Serology. Celiac disease unlikely. Approximately 10% of patients with celiac disease are seronegative. Patients who are already adhering to a gluten-free diet may also be seronegative. If celiac disease is highly clinically suspected, referral to gastroenterology for additional evaluation is recommended. 09/15/2024 13:47 EST [facility] Blood VENOUS BLOOD / Unknown 09/12/2024 10:00 EST 09/12/2024 17:23 EST us Provider Outr Resulting Lab IMMUNOLOGY AND SEROL OGY ORDERABLES Final Result [facility] [address] [place] [address] from Last 3 Months
--- OUTSIDE RECORDS SUMMARY | 2024-09-15 18:42 | XMS_ITS | Encounter Summary ---
[place] [address] Care Team Providers Care Medical Physics Researcher Name Role Phone Charan Sandoval MD Primary Care Provider [phone] Encounter Details Date Type Department Care Team (Late st Contact Info) Description 05/10/2017 Telephone [place] [phone] Cielo Fragoso Social History Tobacco Use Types Packs/Day Years [...] * Telephone Encounter - Cielo Fragoso - 05/10/2017 11:17 AM EDT Left message for patient with appointment information for MRI and follow-up documented in this encounter Plan of Treatment Not on file documented as of this encounter Visit Diagnoses Not on filedocumented in this encounter Care Teams Medical Physics Researcher Relationship Specialty Start Date End Date Charan Sandoval MD [address] [place] [address] PCP - General Family Medicine 01/17/16 documented as of this encounter
--- OUTSIDE RECORDS SUMMARY | 2024-09-15 18:42 | XMS_ITS | Encounter Summary ---
[place] [address] Care Team Providers Care Security Researcher Name Role Phone Charan Sandoval MD Primary Care Provider [phone] [phone] Reason for Referral * Diagnostic Test (Routine) - Closed Specialty Diagnoses / Procedures Referred By Contac t Referred To Contact Radiology Diagnoses Facial pain Hypertrophic scar Procedures MRI Brain wwo Contrast (Generic) MRI Face w Contrast Festus Serrano MD [facility] [place] [address] [place] [address] Referral ID Status Reason Start Date Expiration Date V isits Requested Visits Authorized [id number] Closed Specialty Service Requested 05/07/2017 05/07/2018 1 1 Reason for Visit * Reason Comments Follow Up Surgery Superficial parotide ctomy, right side, states there is a throbbing pain and soreness st the incision site with nerve involvment in the right corner of his mouth Encounter Details Date Type Department Care Team (Late st Contact Info) Description 05/07/2017 11:20 AM EDT Office [place] [address] Festus Serrano MD [facility] [address] [place] [address] Facial pain; Hypertrophic scar Social History Tobacco Use Types Packs/Day Years [...] - Inhaled Oxygen Concentration - - Weight 130.2 kg (287 lb) 05/07/2017 11:24 AM EDT Height - - Body Mass Index 40.03 03/23/2016 2:19 PM EDT documented in this encounter Progress Notes * Festus Serrano MD - 05/07/2017 11:20 AM EDT [facility] OTOLARYNGOLOGY HEAD AND NECK TUMOR CLINIC FOLLOW UP NOTE Tommy Xie is a 36 y.o. 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 History of was somewhat unusual in that he had acute swelling prior to surgery which responded to antibiotics. New issues since last visit: He did well after surgery and up to 3 months ago. He then started to develop swelling and tenderness in the right parotid region with pain extending down into the neck. His scar is also tender to palpation. Pain does not seem worse after eating/chewing although his reports that usually he willbe rubbing the parotid region near the end of a meal. No foul taste in the mouth. Not worse with sour/spicy foods. Does occasionally get spasms around the corner of the mouth on the right side. Has not had any recent imaging. PROBLEM LIST Patient Active Problem List Diagnosis Code ??? Seborrheic dermatitis L21.9 ??? Folliculitis L73.9 ??? Nevus D22.9 PAST MEDICAL HISTORY Past Medical History: Diagnosis Date ??? Sleep apnea uses CPAP SOCIAL HISTORY Social History Substance Use Topics ??? Smoking status: Never Smoker ??? Smokeless tobacco: Never Used ??? Alcohol use 0.0 oz/week 0 Standard drinks or equivalent per week Comment: occasionally MEDICATIONS Current Outpatient Prescriptions on File Prior to Visit Medication Sig Dispense Refill ??? OXYGEN-AIR DELIVERY SYSTEMS (HORIZON NASAL CPAP SYSTEM MISC) by [facility].(Non- Drug; Combo Route) route. ??? ibuprofen (ADVIL;MOTRIN) 200 mg Tablet Take 200 mg by mouth. ??? fluticasone (FLONASE) 50 mcg/actuation [place], Suspension 1 spray by Each Nare route as needed. ??? scopolamine (TRANSDERM-SCOP) 1.5 mg (1 mg over 3 days) patch [address] 1 patch onto the skin every 3 days. (Patient not taking: Reported on 05/07/2017) 3 patch 0 No current facility-administered medications on file prior to visit. ALLERGIES No Known Allergies ROS Pertinent positive findings discussed above. No other findings on review of constitutional visual, cardiovascular, respiratory, gastrointestinal, genitourinary, musculoskeletal, dermatologic, neurological, psychiatric, endocrine, hematologic or immunologic systems. PHYSICAL EXAMINATION Wt Readings from Last 3 Encounters: 05/07/17 (!) 130.2 kg (287 lb) 03/23/16 (!) 118.3 kg (260 lb 14.4 oz) 03/17/16 (!) 120.7 kg (266 lb) General: Well developed, no distress Head/face: Normocephalic, atraumatic Oral cavity: Normal exam of the lips, teeth/gums, floor of mouth, tongue. Normal oral mucosa. Normal palate. Oropharynx: Normal soft palate, tonsils, lateral pharyngeal wall, posterior pharynx. Neck: Hypertrophic scar modified jose luis incision. No palpable mass/adenopathy in the right parotid bed or the neck. Non tender to palpation. Other salivary glands normal. Resp: Normal speech, no stridor, normal respirations. Skin: Normal skin survey of the head and neck. MSK: No trismus, normal neck range of motion Neuro: AxOx3; CN II-XII is grossly intact Psych: Normal mood and affect. Responds appropriately to questions. PROCEDURES none REVIEW OF IMAGES none ASSESSMENT/RECOMMENDATIONS 1 - Right facial pain. Unclear etiology, possibly originating from parotid gland. Other possibilities include TMJ pain. Will check MRI face to further evaluate. 2 - Hypertrophic scar, parotid incision. Silicone sheeting provided to patient. May require scar revision as this is quite tender. RTC same day as MRI scan. I appreciate the opportunity to be involved in Mr. Xie's care. FESTUS SERRANO MD 05/07/2017 documented in this encounter Plan of Treatment Not on file documented as of this encounter Results * MRI Brain wwo Contrast (Generic) (06/28/2017 2:20 PM EDT) Anatomical Region Laterality Modality Head Magnetic Resonan ce Impressions 06/28/2017 2:37 PM EDT Postsurgical changes in the superficial aspect of the right parotid gland. Associated with this is hyperenhancing parotid tissue immediately behind the mandibular ramus. Findings are nonspecific and may represent postoperative inflammation. Aside from several subcentimeter intraparotid lymph nodes, no discrete mass is identified. No trigeminal nerve abnormalities identified. Normal evaluation of the brain. Narrative 06/28/2017 2:37 PM EDT EXAMINATION: MRI BRAIN WWO CONTRAST (GENERIC) CLINICAL HISTORY: RIGHT parotid and facial pain. ??History of prior parotid surgery on the right side. TECHNIQUE: Brain MRI with and without contrast. Trigeminal nerve protocol. 10 cc Gadovist administered. COMPARISON: None FINDINGS: The ventricles are normal size and configuration. No intracranial masses or mass effect. The midline structures appear normal. The bilateral IACs are unremarkable. No diffusion-weighted abnormalities. No abnormal parenchymal enhancement. Prominent scarring is noted in the superficial aspect of the right parotid gland. Hyperenhancing tissue without discrete mass identified within the superior aspect of the residual right parotid gland, immediately behind the mandibular ramus. Several small nodules noted within the remaining right parotid gland best appreciated on series 11 image 21. The largest of these measures approximately 8 mm in size. The TMJs are unremarkable within the limitations of this study. No abnormalities identified along the course of the trigeminal nerves. Meckel's caves are unremarkable. The muscles of mastication are unremarkable. No cavernous sinus abnormalities detected. Procedure Note Papito Harmon MD - 06/28/2017 EXAMINATION: MRI BRAIN WWO CONTRAST (GENERIC) CLINICAL HISTORY: RIGHT parotid and facial pain. History of priorparotid surgery on the right side. TECHNIQUE: Brain MRI with and without contrast. Trigeminal nerve protocol.10 cc Gadovist administered. COMPARISON: None FINDINGS: The ventricles are normal size and configuration. Nointracranial masses or mass effect. The midline structures appear normal. The bilateralIACs are unremarkable. No diffusion-weighted abnormalities. No abnormalparenchymal enhancement. Prominent scarring is noted in the superficial aspect of the rightparotid gland. Hyperenhancing tissue without discrete mass identified within the superior aspect of the residual right parotid gland, immediately behindthe mandibular ramus. Several small nodules noted within the remaining rightparotid gland best appreciated on series 11 image 21. The largest of thesemeasures approximately 8 mm in size. The TMJs are unremarkable within the limitations of this study. No abnormalities identified along the course of the trigeminal nerves.Meckel's caves are unremarkable. The muscles of mastication are unremarkable. No cavernous sinus abnormalities detected. IMPRESSION Postsurgical changes in the superficial aspect of the right parotidgland. Associated with this is hyperenhancing parotid tissue immediately behindthe mandibular ramus. Findings are nonspecific and may representpostoperative inflammation. Aside from several subcentimeter intraparotid lymph nodes,no discrete mass is identified. No trigeminal nerve abnormalities identified. Normal evaluation of the brain. Festus Serrano MD IMG MRI ORDERABLES documented in this encounter Visit Diagnoses Diagnosis Facial pain Headache Hypertrophic scar Keloid scar Facial pain Headache Hypertrophic scar Keloid scar documented in this encounter Care Teams Security Researcher Relationship Specialty Start Date End Date Charan Sandoval MD [address] [place] [address] PCP - General Family Medicine 01/17/16 documented as of this encounter
--- OUTSIDE RECORDS SUMMARY | 2024-09-15 18:42 | XMS_ITS | Encounter Summary ---
Author Organization [facility] [place] [address] Care Team Providers Care Visual Design Lead Name Role Phone Charan Sandoval MD Primary Care Provider [phone] Reason for Visit * Auth/Cert Specialty Diagnoses / Procedures Referred By Contluis alberto t Referred To Contact Diagnoses right parotid neoplasm Procedures PRO EXC PAROTD, LAT LOBE, DISSECT 5TH NERV PRG SOMATOSENSORY TEST, ANY/ALL PER. NERVES, TRUNK OR HEAD EXC.PAROTID TUMOR OR GLAND, LATERAL LOBE Referral ID Status Reason Start Date Expiration Date Visits Re quested Visits Authorized [id number] 1 1 Encounter Details Date Type Department Care Team (Latest Contact Info) Description 03/17/2016 12:12 PM EDT - 03/17/2016 11:43 PM EDT Hospital [place] [address] Jimbo Baron MD [facility] [place] [address] Parotid neoplasm Discharge Disposition: Home Social History Tobacco Use [...] -You can reach the ENT clinic at [phone] for appointment questions. -The ENT triage nurse is available at [phone] -For urgent issues during evenings and weekends the ENT resident manager of organizational development can be reached through [facility] wafer fab operator at [phone] Follow Up: You will need to follow up with ENT in 1 week. This appointment has been requested. You will be notified once it is scheduled, if you do not already see it below. If you do not hear from us in a timely manner, please call to receive your date and time. Currently Scheduled Appointments and VNA instructions: Future Appointments and Orders Future Appointments Provider Department Dept Phone 03/23/2016 2:30 PM Nam Hamilton PA Otolaryngology [phone] documented in this encounter Medications at Time of Discharge Medication Sig Dispensed Refills Start Date End Date fluticasone (FLONASE) 50 mcg/actuation [place], Suspension 1 spray by Each Nare route [...] assessment ongoing; see PACU phase I flowsheet. 2125: Pt given urinal at his request. 2207: Handoff report given to Servando RN documented [...] PADRON MD, PGY1 03/17/16 3:28 PM Pager: [phone] documented in this encounter Miscellaneous Notes * Op Note - Festus Serrano MD - 03/17/2016 8:30 PM EDT [facility] Operative Note Patient Name: Tommy Xie : [id number] MR#: [id number] Case Date: 03/17/2016 Surgeon: Surgeon(s) and Role: * Festus Serrano MD - Primary * Yumiko Betancourt MD - Resident-Legal Biller * Lalo Padron MD - Resident-Surgeon Te [...] Procedure Name Priority Date/Time Associated Diagnosis Comments RECYCLING MANAGER SCAN 03/20/2016 12:00 AM EDT ECG SCAN [...] in this encounter Results * SCAN DOC: RECYCLING MANAGER (03/20/2016 12:00 AM EDT) Anatomical Region Laterality Modality Other Scanning Provider MEDIA MGR SCAN EXT O RDR/RSLT * SCAN DOC: ECG (03/20/2016 12:00 AM EDT) Scanning Provider MEDIA MGR SCAN EXT O RDR/RSLT * Surgical Pathology Report (03/17/2016 8:08 PM EDT) Final Diagnosis [id number] ? Location: The signing pathologist has (i) [...] Serrano MD PATHOLOGY/CYTOLOGY ORDERABLES Performing Organization Address City/[facility]/ZIP Co de Phone Number [facility] [place] [address] * Specimen to Pathology (surgical or derm) (03/17/2016 8:04 PM EDT) AP Specimen 03/17/2016 8:04 PM EDT 03/17/2016 8:04 PM EDT Narrative [facility] - 03/17/2016 8:04 PM EDT Specimen requisition ordered. ??Separate Pathology report to follow Festus Serrano MD PATHOLOGY/CYTOLOGY ORDERABLES Performing Organization Address City/[facility]/ZIP Co de Phone Number [facility] [place] [address] documented in this encounter Visit Diagnoses Diagnosis Parotid neoplasm Neoplasm of unspecified nature of digestive system documented in this encounter Administered Medications Inactive Administered Medications - up to 3 most recent administrations Medication Order MAR Action Action Date Dose Rate Site oxyCODONE-acetaminophen (PERCOCET) 5-325 mg per tablet 1-2 [...] Until Discontinued, Verify scopolamine 1.5 mg patch. documented in this encounter Active and Recently Administered Medications Times are shown in EDT. Scheduled Medication Order 03/15/2016 03/16/2016 03/17/2016 scopolamine (TRANSDERM-SCOP) 1.5 mg (1 mg over 3 days) patch 1 patch(Linked Group 1) 1 patch, Transdermal, EVERY 72 HOURS, First dose on Sun03/17/16 at 2200, Until Discontinued, Routine 4 (Patch Applied - Provider: Servando Carias RN) [...] (Anesthesia Volume Adjustment - Provider: Rosamaria Pineda CRNA)1852 (Anesthesia Volume Adjustment - Provider: Rosamaria Pineda CRNA)2007 (Anesthesia Volume Adjustment - Provider: Rosamaria Pineda CRNA)2048 (New Bag - Provider: Rosamaria Pineda CRNA)2107 (Stopped - Provider: Rosamaria Pineda CRNA) PRN Medication Order 03/15/2016 03/16/2016 03/17/2016 bacitracin ointment (CANCELED) ONCE PRN, Starting on Sun03/17/16 at 2037, Until 03/18/16 at 0149, Intra-Operative (Intra-Procedure) 2036 (Given - Provid er: Lalo Padron MD) [...] Until 03/18/16 at 0149, Intra-Operative (Intra-Procedure), Routine 171 (Given - Provid er: Festus Serrano MD) oxyCODONE-acetaminophen (PERCOCET) 5-325 mg per tablet 1-2 tablet (CANCELED) 1-2 tablet, Oral, EVERY 4 HOURS PRN, Pain, Starting on Sun03/17/16 at 2056, Until Sun03/17/16 at 2345, Maximum dose of acetaminophen is 4000 mg from all sources in 24 hours., PACU Recovery 2225 (Given - Provid er: Servando Carias RN) [...] 1711 (Given - Provid er: Festus Serrano MD [...] patch documented in this encounter Care Teams Visual Design Lead Relationship Specialty Start Date End Date Charan Sandoval MD [address] [place] [address] PCP - General Family Medicine 01/17/16 documented as of this encounter
--- OUTSIDE RECORDS SUMMARY | 2024-09-15 18:42 | XMS_ITS | Encounter Summary ---
Author Organization [facility] [place] [address] Care Team Providers Care Supervisor Wet Room Name Role Phone Charan Sandoval MD Primary Care Provider [phone] [phone] Encounter Details Date Type Department Care Team (Late st Contact Info) Description 03/23/2016 2:15 PM EDT Office Visit Audiology at [address] [address] Ruby Rodriguez AUD [facility] [place] [address] Abnormal auditory perception of right ear; Encounter for hearing examination Social History Tobacco Use Types Packs/Day Years Used Date Smoking Tobacco: Never Smokeless Tobacco: Never Alcohol Use Standard Drinks/Week Comments Yes 0 (1 standard drink = 0.6 oz pur e alcohol) occasionally Sex and Gender Information Value Date Recorded Sex Assigned at Not on file Gender Identity Not on file Sexual Orientation Not on file documented as of this encounter Progress Notes * Ruby Rodriguez AUD - 03/26/2016 7:28 PM [place] [address] Tommy Xie, 35 y.o., was seen on 03/26/2016 for an audiologic evaluation in conjunction with MARIELA Steve in Otolaryngology. Please refer to the scanned audiogram listed under Scan Docin Chart Review for findings, impressions and recommendations. It may take up to 24 hours for theaudiogram to be scanned. Enclosure: Audi[place] [address] documented in this encounter Plan of Treatment Not on file documented as of this encounter Visit Diagnoses Diagnosis Abnormal auditory perception of right ear Encounter for hearing examination Other examination of ears and hearing documented in this encounter Care Teams Supervisor Wet Room Relationship Specialty Start Date End Date Charan Sandoval MD [address] [place] [address] [address] [place] [address] PCP - General Family Medicine 01/17/16 documented as of this encounter
--- OUTSIDE RECORDS SUMMARY | 2024-09-15 18:42 | XMS_ITS | Clinical Summary ---
Author Organization [facility] Address [facility] [place] [address] Care Team Providers Care Unemployment Insurance Director Name Role Phone Charan Sandoval MD Primary Care Provider +1 [phone] Allergies No known active allergies Medications Medication Sig Dispensed Refills Start Date End Date Status fluticasone (FLONASE) 50 mcg/actuation [place], Suspension 1 spray by Each Nare route as needed. 10/13/2015 Active OXYGEN-AIR DELIVERY SYSTEMS (HORIZON NASAL CPAP SYSTEM MISC) by Misc.(Non-Drug; Combo Route) route. Active ibuprofen (ADVIL;MOTRIN) 200 mg Tablet Take 200 mg by mouth. Active PARoxetine (PAXIL) 20 mg Tablet 04/20/2017 Active Active Problems Problem Noted Date Diagnosed Date Nevus 12/05/2013 Seborrheic dermatitis 02/08/2012 Folliculitis 02/08/2012 Social History Tobacco Use Types Packs/Day Years Used Date Smoking Tobacco: Never Smokeless Tobacco: Never Alcohol Use Standard Drinks/Week Comments Yes 0 (1 standard drink = 0.6 oz pur e alcohol) occasionally Sex and Gender Information Value Date Recorded Sex Assigned at Not on file Gender Identity Not on file Sexual Orientation Not on file Last Filed Vital Signs Vital Sign Reading Time Taken Comments Blood Pressure 140/95 09/20/2017 8:24 AM EST Pulse 79 09/20/2017 8:24 AM EST Temperature 37 ??C (98.6 ??F) 09/20/2017 8:24 AM EST Respiratory Rate 9 03/17/2016 9:30 PM EDT Oxygen Saturation 96% 09/20/2017 8:24 AM EST Inhaled Oxygen Concentration - - Weight 127.3 kg (280 lb 11.2 oz) 09/20/2017 8:24 AM EST Height 180.3 cm (5' 11) 09/20/2017 8:24 AM EST Body Mass Index 39.15 09/20/2017 8:24 AM EST Plan of Treatment Health Maintenance Due Date Last Done Comments HIV screen 2000 Hepatitis C Screening 2000 Lipid Screening 2000 Hepatitis B vaccine (0-59 yrs) (1) 2001 Tetanus/Diphtheria/Pertussis Vaccines (1 - Tdap) 11/10 Covid-19 Vaccine ( - season) 2024 Influenza (Flu) vaccine (1 o f 1 - Influenza standard series) 06/01/2024 Advance Directives * Full Code (Latest Code Status on File) Date Activated Date Inactivated Comments 03/17/2016 3:29 PM 03/18/2016 1:49 AM Question Answer Comments Does patient have capacity to make decision: Yes Care Teams Unemployment Insurance Director Relationship Specialty Start Date End Date Charan Sandoval MD [address] [place] [address] PCP - General Family Medicine 01/17/16
--- OUTSIDE RECORDS SUMMARY | 2024-09-15 18:42 | XMS_ITS | Encounter Summary ---
Author Organization [facility] [place] [address] Care Team Providers Care Pre Parole Counseling Aide Name Role Phone Rafal, Angelo MOREIRA Primary Care Provider [phone] Reason for Visit * Reason Comments Skin Check Encounter Details Date Type Department Care Team (Late st Contact Info) Description 12/05/2013 3:00 PM EST Office Visit Dermatology at [address] [phone] David Olguin MD [address] [place] [address] Nevus (Primary Dx) Social History Tobacco Use Types Packs/Day Years Used Date Smoking Tobacco: Never Sex and Gender Information Value Date Recorded Sex Assigned at Not on file Gender Identity Not on file Sexual Orientation Not on file documented as of this encounter Progress Notes * David Olguin MD - 12/05/2013 3:28 PM EST Problem: Mole check. Moncho is a 33-year-old gentleman who I last saw in 2011. He was recently seen by Jenny Ybarra who was concerned about some moles on his chest and back. I had seen Moncho in the past for acneiform folliculitis in the groin area and seborrheic dermatitis. Physical examination reveals a pleasant 33-year-old gentleman who is blue eyed and fair skinned. He has a number of tattoos. He has oval to round medium brown melanocytic nevi on the back. Some of these are two-toned with a darker central area. Fortunately, all appear benign by the ABCD criteria, and the two tone pigmentation or the single tone pigmentation appear to be his signature nevi, as they are also found on his chest. Examination of the head and the neck, hands, arms, forearms, thighs, and calves reveals benign-appearing nevi in the 4 to 6 to almost 8 mm diameter range. Assessment and Plan: 1. Benign nevi. a. Patient reassured about benign nevi. b. Continue sun avoidance precautions. c. Return to clinic p.r.n. for new lesions/concerns. COPY: Mitali Arauz. documented in this encounter Plan of Treatment Not on file documented as of this encounter Visit Diagnoses Diagnosis Nevus- Primary Benign neoplasm of skin, site unspecified documented in this encounter Care Teams Pre Parole Counseling Aide Relationship Specialty Start Date End Date Angelo Lyles DO [address] [place] [address] PCP - General 08/23/10 01/16/16 documented as of this encounter
--- OUTSIDE RECORDS SUMMARY | 2024-09-15 18:42 | XMS_ITS | Encounter Summary ---
[place] [address] Care Team Providers Care Director Of Quality Control Name Role Phone Charan Sandoval MD Primary Care Provider [phone] Reason for Referral * Diagnostic Test (Routine) - Closed Specialty Diagnoses / Procedures Referred By Contac t Referred To Contact Radiology Diagnoses Facial pain Hypertrophic scar Procedures MRI Brain wwo Contrast (Generic) MRI Face w Contrast Festus Green MD [facility] [place] [address] [place] [address] Referral ID Status Reason Start Date Expiration Date V isits Requested Visits Authorized [id number] Closed Specialty Service Requested 05/07/2017 05/07/2018 1 1 Reason for Visit * Diagnostic Test (Routine) - Closed Specialty Diagnoses / Procedures Referred By Contac t Referred To Contact Radiology Diagnoses Facial pain Hypertrophic scar Procedures MRI Brain wwo Contrast (Generic) MRI Face w Contrast Festus Green MD [facility] [place] [address] [place] [address] Referral ID Status Reason Start Date Expiration Date V isits Requested Visits Authorized [id number] Closed Specialty Service Requested 05/07/2017 05/07/2018 1 1 Encounter Details Date Type Department Care Team (Latest Contact Info) Description 06/28/2017 12:16 PM EDT - 06/28/2017 11:59 PM EDT Hospital Encounter MRI at [facility] [place] [address] Festus Green MD [facility] [place] [address] Facial pain; Hypertrophic scar Discharge Disposition: Home Social History Tobacco Use [...] Sig Dispensed Refills Start Date End Date PARoxetine (PAXIL) 20 mg Tablet 04/20/2017 OXYGEN-AIR DELIVERY SYSTEMS (HORIZON NASAL CPAP SYSTEM MISC) by Mis.(Non-Drug; Combo Route) route. ibuprofen (ADVIL;MOTRIN) 200 mg Tablet Take 200 mg by mouth. fluticasone (FLONASE) 50 mcg/actuation Dowell, Suspension 1 spray by Each Nare route as needed. 10/13/2015 predniSONE (DELTASONE) 10 mg Tablet 5 tabs per day for 5 days; 4 tabs per day for 3 days; 3 tabs per day for 3 days; 2 tabs per day for 3 days; 1 tab per day for 3 days 55 tablet 06/28/2017 09/20/2017 amoxicillin-clavulanate (AUGMENTIN) 875-125 mg Tablet Take 1 tablet by mouth 2 times daily. 28 tablet 06/28/2017 09/20/2017 documented as of this encounter Plan of Treatment Not on file documented as of this encounter Procedures Procedure Name Priority Date/Time Associated Diagnosis Comments MRI BRAIN WWO CONTRAST (GENERIC) Routine 06/28/2017 2:20 PM EDT Facial pain Hypertrophic scar documented in this encounter Results * MRI Brain wwo [...] abnormalities identified. Normal evaluation of the brain. Authorizing Provider Result Taiwo Green MD IMG MRI ORDERABLES documented in this encounter Visit Diagnoses Diagnosis Facial pain Headache Hypertrophic scar Keloid scar documented in this encounter Administered Medications Inactive Administered Medications - up to 3 most recent administrations Medication Order MAR Action Action Date Dose Rate Site gadobutrol (GADAVIST) 1 mMol/mL injection 0-20 mL 0-20 mL, Intravenous, ONCE PRN, 1 dose, Starting on Coty 06/28/17 at 1316, Until Coty 06/28/17 at 1400, Per Protocol, Radiology Contrast, Routine Given 06/28/2017 2:00 PM EDT 10 mLs documented in this encounter Care Teams Director Of Quality Control Relationship Specialty Start Date End Date Charan Sandoval MD [address] [facility] [address] [place] [address] PCP - General Family Medicine 01/17/16 documented as of this encounter
--- OUTSIDE RECORDS SUMMARY | 2024-09-15 18:42 | XMS_ITS | Encounter Summary ---
[place] [address] Care Team Providers Care Ruffling Machine Operator Name Role Phone Charan Sandoval MD Primary Care Provider [phone] Encounter Details Date Type Department Care Team (Late st Contact Info) Description 05/10/2017 Telephone [place] [phone] Cielo Fragoso Social History Tobacco Use Types [...] Telephone Encounter - Cielo Fragoso - 05/10/2017 10:57 AM EDT MRI safety questions documented in this encounter Plan of Treatment Not on file documented as of this encounter Visit Diagnoses Not on filedocumented in this encounter Care Teams Ruffling Machine Operator Relationship Specialty Start Date End Date Charan Sandoval MD [address] [place], [place] [address] PCP - General Family Medicine 01/17/16 documented as of this encounter
--- OUTSIDE RECORDS SUMMARY | 2024-09-15 18:42 | XMS_ITS | Encounter Summary ---
[place] [address] Care Team Providers Care Specialist Physicians Name Role Phone Charan Sandoval MD Primary Care Provider [phone] Encounter Details Date Type Department Care Team (Late st Contact Info) Description 02/10/2016 Telephone [place] [phone] Kameron Waller Social History Tobacco Use Types Packs/Day Years Used Date Smoking Tobacco: Never Smokeless Tobacco: Never Alcohol Use Standard Drinks/Week Comments Yes 0 (1 standard drink = 0.6 oz pur e alcohol) Weekly Sex and Gender Information Value Date Recorded Sex Assigned at Not on file Gender Identity Not on file Sexual Orientation Not on file documented as of this encounter Miscellaneous Notes * Telephone Encounter - Kameron Waller - 02/10/2016 10:57 AM EDT Booked surgery with patient in clinic, confirmed surgery date of 03/17, instruction packet given documented in this encounter Plan of Treatment Not on file documented as of this encounter Visit Diagnoses Not on filedocumented in this encounter Care Teams Specialist Physicians Relationship Specialty Start Date End Date Charan Sandoval MD [address] [place] [address] PCP - General Family Medicine 01/17/16 documented as of this encounter
--- OUTSIDE RECORDS SUMMARY | 2024-09-15 18:42 | XMS_ITS | Encounter Summary ---
Author Organization [facility] Address [address] [place] [address] Care Team Providers Care Field Counsel Name Role Phone Unavailable Primary Care Provider Unavailabl e Encounter Details Date Type Department Care Team (Late st Contact Info) Description 09/12/2024 Lab Requisition [facility] Pathology & Laboratory Medicine - [address] [id number] Outr Resulting Lab, Provider Social History Tobacco [...] CELIAC DISEASE PANEL Routine 09/12/2024 10:00 EST documented in this encounter Results * CELIAC DISEASE PANEL (09/12/2024 10:00 EST) Tissue Transglutaminase Antibody, IgA <4.0 <20.0 CU 09/15/2024 13:47 EST [facility] Comment: A negative result may be due to IgA deficiency and does not rule out celiac disease. Negative: <20.0 CU Weak Positive: 20.0-30.0 CU Positive: >30.0 CU Results were obtained with the [employer] Flash h-tTG IgA chemiluminescent immunoassay. Values obtained with different manufacturers' assay methods may not be used interchangeably. IgA 281 85 - 499 mg/dL 09/15/2024 13:47 EST [facility] Celiac Disease Interpretation Negative Serology. Celiac disease unlikely. Approximately 10% of patients with celiac disease are seronegative. Patients who are already adhering to a gluten-free diet may also be seronegative. If celiac disease is highly clinically suspected, referral to gastroenterology for additional evaluation is recommended. 09/15/2024 13:47 EST [facility] Blood VENOUS BLOOD / Unknown 09/12/2024 10:00 EST 09/12/2024 17:23 EST us Provider Outr Resulting Lab IMMUNOLOGY AND SEROL OGY ORDERABLES Final Result [facility] [address] [place], [place] [id number] documented in this encounter Visit Diagnoses Not on filedocumented in this encounter
--- OUTSIDE RECORDS SUMMARY | 2024-09-15 18:42 | XMS_ITS | Encounter Summary ---
Author Organization [facility] Address 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, in Nov had sinus inf and ear pain, C/O LT ear fullness Encounter Details Date Type Department Care Team (Late st Contact Info) Description 02/10/2016 9:20 AM EDT Office Visit [place] [address] Festus Green MD [facility] [place] [address] Parotid neoplasm Social History Tobacco Use Types Packs/Day Years [...] Sign Reading Time Taken Comments Blood Pressure 145/86 02/10/2016 9:28 AM EDT Pulse 81 02/10/2016 9:28 AM EDT Temperature - - Respiratory Rate - - Oxygen Saturation - - Inhaled Oxygen Concentration - - Weight 120.7 kg (266 lb) 02/10/2016 9:28 AM EDT Height 180.3 cm (5' 11) 02/10/2016 9:28 AM EDT Body Mass Index 37.1 02/10/2016 9:28 AM EDT documented in this encounter Progress Notes * Festus Green MD - 02/10/2016 11:26 AM EDT Attending note: Patient seen and examined with the above resident. I have reviewed and agree with the history, physical, and assessment and plan. This patient has a mass in the right parotid gland. We reviewed surgical management. The association between his infection and the mass is unclear. May have been more related to his CPAP mask. He also has a history of SOREN and large tonsils with oropharyngeal crowding. May benefit from SOREN surgery at some point. We discussed getting his old sleep study records and will follow up on this after his parotid surgery. Festus Green MD FACS Otolaryngology - Head & Neck Surgery * Aleksandar Eugene - 02/10/2016 9:07 AM EDT [facility] Otolaryngology - Head & Neck Surgery NEW PATIENT CONSULTATION Primary Care Physician:CHARAN SANDOVAL MD Consult requested by:None Date:02/10/2016 ENT Attending:Dr. Green Reason for consultation:Parotid Mass First noted in November of this year. Had sinus/ear infection and was prescribed Abx then steroids by PCP. Was referred to Dr. Bazan, who diagnosed parotitis and prescribed two additional rounds abx by Dr. Bazan. Had MRI which showed mass in tail of parotid. Had F[place] by [place]. Bazan at [facility] [place]. He notes pressure in the infra-auricular area, and stiff neck down to his shoulder over the past few months. His cheek was swollen, warm, tender to palpation. Never had purulent discharge from Kinjal's duct. Last course of abx was completed one month ago. He endorses tinnitus in the left ear. No personal history of skin cancer. No lesions on head and neck On Flonase for nasal congestion. ON CPAP for SOREN History present illness: History obtained through patient interview, review of relevant records, and/or discussion with referring provider. Tommy Xie is a 35 y.o. male presenting with Right parotid mass Head and neck symptom survey Symptom Comments Dysphagia n Odynophagia n Voice change or hoarseness n Breathing difficulties n Has SOREN wears CPAP Otalgia n Hemoptysis n Adenopathy n Weight loss n No unintentional weight loss Xerstomia n Taste disturbance n Review of systems: Except as noted in the history above, review of systems is negative for RN ADMISSION, bone, pulmonary, cardiac, GI, , extremity, neurologic, endocrine, skin, constitutional, emotional, or functional problems. Past medical history: Patient Active Problem List Diagnosis Code ??? Seborrheic dermatitis L21.9 ??? Folliculitis L73.9 ??? 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 Marital Status: Single Spouse Name: N/A Number of Children: N/A ??? Years of Education: N/A Occupational History ??? Not on file. Social History Main Topics ??? Smoking status: Never Smoker ??? Smokeless tobacco: Not on file ??? Alcohol Use: Not on file ??? Drug Use: Not on file ??? Sexual Activity: Not on file Other Topics Concern ??? Not on file Social History Narrative ??? No narrative on file Lives in : [facility] [phone] Family history: Mother with cutaneous malignancy; Medications: Fluticasone Allergies: Allergies as of 02/10/2016 ??? (No Known Allergies) Exam: Vitals: There were no vitals taken for this visit. GENERAL: Well developed, well appearing, no acute distress. HEAD/FACE/EYES: Normocephalic with no gross deformity. Extraocular movements intact. SALIVARY: Right tail of parotid subtly palpable mass at infra-auricular region. Pre- auricularly, the parotid appears and feels slightly more full full than the contralateral parotid. No purulence observed fromStenson duct upon palpation. No signs of infection. EARS: Normal exam of the external ear, ear canal, and middle ear. NOSE: Normal external nasal exam. Septum is straight. Inferior Turbinates are large. ORAL CAVITY: Normal exam of oral tongue Normal mucosa without lesion Floor of mouth is soft. Dentition intact and in grossly good condition OROPHARYNX: 3+ large, bulky tonsils Normal soft palate and uvula. Normal posterior pharyngeal wall. NECK: Normal to inspection. No adenopathy. No neck mass. Normal thyroid. RESPIRATORY: Normal voice. No stridor. Normal respirations. CV: Normal carotid pulses. SKIN: Normal skin survey of the head and neck region. MUSCULOSKELETAL: Normal neck range of motion. No trismus. NEURO/PSYCH: Normal affect. Alert and oriented x 3. Responds appropriately to questions. CN II-XII grossly intact. Radiology: Neck MRI: 14 mm x 13 mm well-encapsulated mass right superficial tail of parotid gland. 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 Differential diagnosis would include benign salivary gland neoplasm such as pleomorphic adenoma, Warthin's Tumor; could also represent primary salivary gland malignancysuch as Adenoid cystic carcinoma, or metastasis from a head and neck cutaneous malignancy to the parotid. Right neck pain may be myofascial in origin. Also has history of SOREN on CPAP and large tonsils, and at some point he may wish to have tonsillectomy for improvement of SOREN symptoms. Given his history of parotitis, we will prescribe him a course of antibiotics to be commenced one week prior to surgery. Discussed with the patient that most parotid tumors are benign with the majority of benign tumors being pleomorphic adenomas. Although benign, these tumors can continue to grow in size and in a smallpercentage, malignant transformation can occur. I have recommended parotidectomy with excision of the tumor for both diagnostic and therapeutic reasons. The surgery was described in detail including the type of incision, the duration of surgery, the side effects of surgery such as Thomas's syndrome and facial numbness, as well as the risks of surgery such as bleeding, infection, scarring, and temporary or permanent facial nerve injury. For tumors in the deep lobe of the gland, stretching of the nerve with possible temporary weakness may occur during tumor removal. Recovery of facial nerve function and resolution of facial numbness usually takes about 3 to 6 months. Alternatives to surgery werealso discussed and this included fine needle aspiration and repeat imaging with close clinical follow up. Although FNA is a good diagnostic study, accuracy is in the 85% range. Also discussed that we cannot guarantee that removal of the tumor will alleviate his face and neck pain . The patient had a chance to review these options and would like to proceed with surgery. Recommendations/Plan: -Right superficial parotidectomy -Antibiotics to be commenced one week prior to surgery 2/2 history of parotitis documented in this encounter Plan of Treatment Not on file documented as of this encounter Procedures Procedure Name Priority Date/Time Associated Diagnosis Comments EXC.PAROTID TUMOR OR GLAND, LATERAL LOBE, W DISSECTION & PRESERVATION FACIAL NERVE Routine 02/10/2016 10:27 AM EDT Parotid neoplasm documented in this encounter Visit Diagnoses Diagnosis Parotid neoplasm Neoplasm of unspecified nature of digestive system documented in this encounter Care Teams Clinical Transformation Specialist Relationship Specialty Start Date End Date Charan Sandoval MD [address] [place] [address] PCP - General Family Medicine 01/17/16 documented as of this encounter
--- OUTSIDE RECORDS SUMMARY | 2024-09-15 18:42 | XMS_ITS | Referral Summary ---
Author Organization [facility] Address [address] [place] [address] Care Team Providers Care Pelt Inspector Name Role Phone Unavailable Primary Care Provider Unavailabl e Encounters Date Type Department Care Team Description 09/12/2024 Lab Requisition [facility] Pathology & Laboratory Medicine - [address] [address] Outr Resulting Lab, Provider from Last 3 [...] Orientation Not on file Plan of Treatment Not on file Procedures Procedure Name Priority Date/Time Associated Diagnosis Comments CELIAC DISEASE PANEL Routine 09/12/2024 10:00 EST from Last 3 Months Results * CELIAC DISEASE PANEL (09/12/2024 10:00 EST) Tissue Transglutaminase Antibody, IgA <4.0 <20.0 CU 09/15/2024 13:47 EST [facility] Comment: A negative result may be due to IgA deficiency and does not rule out celiac disease. Negative: <20.0 CU Weak Positive: 20.0-30.0 CU Positive: >30.0 CU Results were obtained with the [employer] QUANTA Flash h-tTG IgA chemiluminescent immunoassay. Values obtained with different manufacturers' assay methods may not be used interchangeably. IgA 281 85 - 499 mg/dL 09/15/2024 13:47 EST [facility] Celiac Disease Interpretation Negative Serology. Celiac disease unlikely. Approximately 10% of patients with celiac disease are seronegative. Patients who are already adhering to a gluten-free diet may also be seronegative. If celiac disease is highly clinically suspected, referral to gastroenterology for additional evaluation is recommended. 09/15/2024 13:47 EST [facility] Blood VENOUS BLOOD / Unknown 09/12/2024 10:00 EST 09/12/2024 17:23 EST us Provider Outr Resulting Lab IMMUNOLOGY AND SEROL OGY ORDERABLES Final Result [facility] [address] [place], [place] [id number] from Last 3 Months
[2024-09-20 19:27] LABS: Lactoferrin, Qt, Stool <6.25 mcg/mL (<7.25)
== END 2024-09-15 18:42 | disposition home or self-care (01) ==
LOC: LBN 18:41
PROVIDERS: PCP Nurse Practitioner Family; Visit Provider Internal Medicine Gastroenterology
DX: R19.7 Diarrhea, unspecified (principal)
CPT/HCPCS: 83631; 82710; 87177